=== PATIENT | male | born 1930 | race Hispanic/Latino ===

== ENCOUNTER 2016-07-31 06:29 | Inpatient (IN) | payer MEDICARE, OTHER ==
[2016-07-31] MEDS ORDERED: PROVENTIL IH ONE (06:38)
[2016-07-31] MEDS ORDERED: ATROVENT IH ONE (06:39)
--- NOTE | 2016-07-31 07:14 | Emergency Department Report ---
HPI - General Time Seen by Provider: 07/31/16 07:03 - HPI HPI: This is a 86-year-old male who presents to the emergency department via EMS from home after family called due to patient appearing to have shortness of breath. When EMS got there the patient's oxygen saturation on room air was 86% and an albuterol treatment was given. Upon arrival to the emergency department his pulse ox was up to 97% on room air. Patient is a poor historian secondary to dementia and is currently slightly combative. He has a history of COPD but it is unknown at this time whether or not he is on home oxygen. He also has a history of diabetes and hypertension. ED Past Medical Hx - Past Medical History Hx Hypertension: Yes Hx Diabetes: Yes Hx COPD: Yes Hx Dementia: Yes Additional medical history: Dementia - Surgical History Past Surgical History?: No - Social History Smoking Status: Current Every Day Smoker Substance Use Type: None - Medications Home Medications: Home Medications Medication Instructions Recorded Confirmed Last Taken Type Unobtainable 04/12/16 04/12/16 Unknown History ED Review of Systems ROS: Stated complaint: JOSE FRANCISCO Other details as noted in HPI Comment: Unobtainable due to pts medical conditions Physical Exam - Physical Exam Vital Signs: Vital Signs 07/31/16 07/31/16 06:45 06:46 Temperature 98 F Pulse Rate 77 Pulse Rate [ 68 Bilateral] Respiratory 20 Rate Respiratory 18 Rate [Bilateral ] Blood Pressure 156/89 Blood Pressure 156/89 [Left] O2 Sat by Pulse 97 Oximetry Physical Exam: GENERAL: The patient is well-developed well-nourished. Elderly-appearing and confused. HEENT: Normocephalic. Atraumatic. Extraocular motions are intact. Patient has moist mucous membranes. Pupils equal reactive to light bilaterally. NECK: Supple. Trachea is midline. CHEST/LUNGS: Coarse breath sounds throughout the chest. There is some tachypnea but no accessory muscle use. There is no respiratory distress noted. HEART/CARDIOVASCULAR: Irregularly irregular. Controlled rate. ABDOMEN: Abdomen is soft, nontender. Patient has normal bowel sounds. There is no abdominal distention. SKIN: There is no rash. There is no edema. There is no diaphoresis. NEURO: Patient is awake but confused. Mostly nonverbal. Does not follow any commands. Withdraws from painful stimuli. MUSCULOSKELETAL: There is no tenderness or deformity. There is no limitation range of motion. There is no evidence of acute injury. Cap refill less than 2 seconds. Radial pulses +2 over 4 bilaterally. ED Course Vital Signs 07/31/16 07/31/16 06:45 06:46 Temperature 98 F Pulse Rate 77 Pulse Rate [ 68 Bilateral] Respiratory 20 Rate Respiratory 18 Rate [Bilateral ] Blood Pressure 156/89 Blood Pressure 156/89 [Left] O2 Sat by Pulse 97 Oximetry ED Medical Decision Making - Lab Data Result diagrams: 07/31/16 07:16 07/31/16 07:16 - EKG Data -: EKG Interpreted by Me - EKG Data When compared to previous EKG there are: changes noted (current EKG now shows what appears to be atrial fibrillation) Interpretation: other (atrial fibrillation, rate of 83 bpm, normal axis, right bundle-branch block, occasional premature conducted complexes) - Radiology Data Radiology results: report reviewed, image reviewed interpreted by me: Chest x-ray shows some mild cardiomegaly and pulmonary vascular congestion with bilateral pleural effusions, right greater than left. No obvious pneumonia. No pneumothorax. CT of the head without contrast was not yet read by radiology but I took a look at it and I do not see any obvious intracranial bleed, shift or acute process. There is severe atrophy seen. CT angiography of the chest does not show any pulmonary embolism or aortic dissection. There is a large right pleural effusion. - Medical Decision Making 86-year-old male presents with complaint of shortness of breath. There is some questionable history of dementia but he is certainly confused if not documented here and is mostly nonverbal and does not follow commands. Patient's lungs sound very coarse with bronchospasm as well. Chest x-ray shows vascular congestion and some pleural effusions. Patient's labs show a slightly elevated first troponin at 0.045. Patient is in atrial fibrillation but with controlled rate. The d-dimer was very elevated at greater than [address] of the chest was done angiography and it did not show any pulmonary embolism or dissection but does show some pleural effusions. Patient given some Lasix, steroids, breathing treatments. Due to the patient's age and altered mental status, no blood thinners were used for the atrial fibrillation at this time. A CT of the head was ordered and has not been read by radiology but I do not see any obvious bleed, shift or acute process. There is severe atrophy. Patient will be admitted to hospital for his shortness of breath, CHF and has been accepted for admission by the hospitalist, Dr. Morales. - Differential Diagnosis CHF, PE, IN, pneumonia, COPD Critical Care Time: No Critical care attestation.: If time is entered above; I have spent that time in minutes in the direct care of this critically ill patient, excluding procedure time. ED Disposition Clinical Impression: Elevated troponin CHF (congestive heart failure) Qualifiers: Congestive heart failure type: unspecified congestive heart failure type Congestive heart failure chronicity: acute on chronic Qualified Code(s): I50.9 - Heart failure, unspecified Hypertension Qualifiers: Hypertension type: essential hypertension Qualified Code(s): I10 - Essential ( primary) hypertension Dyspnea Qualifiers: Dyspnea type: shortness of breath Qualified Code(s): R06.02 - Shortness of breath Dementia Qualifiers: Dementia type: unspecified type Dementia behavioral disturbance: without behavioral disturbance Qualified Code(s): F03.90 - Unspecified dementia without behavioral disturbance Disposition: OP ADMITTED IP TO THIS HOSP Is pt being admited?: Yes Condition: Stable Time of Disposition: 10:26
[2016-07-31 07:42] LABS: Basophils % (Auto) 0.6 % (0.0-1.8); Hematocrit 38.1 % (35.5-45.6); Hemoglobin 12.3 gm/dl (11.8-15.2); Mean Corpuscular HGB Conc 32 % (32-34); Mean Corpuscular Hemoglobin 27 pg (28-32); Mean Corpuscular Volume 82 fl (84-94); Platelet Count 283 K/mm3 (140-440); Red Blood Count 4.63 M/mm3 (3.65-5.03); Red Cell Distribution Width 16.7 % (13.2-15.2); White Blood Count 7.8 K/mm3 (4.5-11.0)
[2016-07-31 07:52] LABS: INR 1.24 (0.87-1.13)
[2016-07-31 07:53] LABS: Partial Thromboplastin Time 32.6 Sec. (24.2-36.6)
[2016-07-31 07:56] LABS: BUN/Creatinine Ratio 18.57; Blood Urea Nitrogen 13 mg/dL (9-20); Calcium 9.2 mg/dL (8.4-10.2); Carbon Dioxide 27 mmol/L (22-30); Chloride 105.6 mmol/L (98-107); Creatine Kinase MB 6.9 ng/mL (0.0-4.0); Glucose 102 mg/dL (75-100); Potassium 3.4 mmol/L (3.6-5.0); Sodium 147 mmol/L (137-145)
[2016-07-31 07:58] LABS: Anion Gap 18 mmol/L
[2016-07-31 07:59] LABS: Albumin/Globulin Ratio 0.8 %; Bilirubin,Direct 0.6 mg/dL (0-0.2); Bilirubin,Indirect 1.2 mg/dL; Bilirubin,Total 1.8 mg/dL (0.1-1.2)
[2016-07-31 08:10] LABS: Bacteria,Urine 2+ /HPF (Negative); Bilirubin,Urine NEG (Negative); Blood,Urine SM (Negative); Ketones,Urine TR mg/dL (Negative); Leukocyte Esterase,Urine SM (Negative); Mucus,Urine 3+ /HPF; Nitrite,Urine NEG (Negative)
[2016-07-31] MEDS ORDERED: LASIX IV ONE (08:12)
[2016-07-31] MEDS ORDERED: BABY ASPIRIN PO ONE (08:17)
[2016-07-31] MEDS ORDERED: ROCEPHIN/NS 1 GM/50 ML 1 GM/50 ML BAG IV ONE (08:17)
[2016-07-31] MEDS ORDERED: NACL ONE (08:42)
[2016-07-31] MEDS ORDERED: ATIVAN ONE (08:56)
[2016-07-31] MEDS ORDERED: ATIVAN IV ONE (08:57)
--- NOTE | 2016-07-31 09:19 | XRay Report ---
Single view chest: Compared to 04/12/16. History: Difficulty breathing. Findings: Borderline cardiomegaly. Trachea is midline. Pulmonary vascular congestion bilaterally with suspicion of right pleural effusion. Bilateral faint interstitial thickening. Impression: Probable CHF.
--- NOTE | 2016-07-31 09:35 | Cat Scan Report ---
CTA chest: History: Elevated d-dimer. Findings: No evidence of aortic aneurysm or pulmonary embolism. Atherosclerotic aorta. Large right pleural effusion with minimal left pleural effusion. No pericardial effusion. No mediastinal mass or adenopathy. Centrilobular emphysema bilaterally. Linear densities right and left perihilar area which airspace opacities suggestive of pneumonitis with discoid atelectasis. Impression: Bilateral pneumonitis with discoid atelectasis. No evidence of pulmonary embolism. Right large pleural effusion.
[2016-07-31] MEDS ORDERED: NOVOLOG SUB-Q ONE (10:32)
[2016-07-31] MEDS ORDERED: APRESOLINE ONE (11:57)
[2016-07-31] MEDS: APRESOLINE IV PRN (12:03)
[2016-07-31] MEDS: DUONEB 0.5 MG-3 MG/3 ML SOLN IH SCH ×2 (13:55→20:04)
[2016-07-31 14:38] LABS: Creatine Kinase MB 6.5 ng/mL (0.0-4.0)
--- NOTE | 2016-07-31 15:22 | Cat Scan Report ---
FINAL REPORT EXAM: CT HEAD/BRAIN WO CON HISTORY: Dementia, AMS TECHNIQUE: CT head without contrast PRIORS: None. FINDINGS: No acute intra-axial or extra-axial hemorrhage is identified. There is no evidence of midline shift or mass effect. The ventricles and sulci are within normal limits. [place]eralta-white matter differentiation is intact. No acute parenchymal abnormalities seen. There are patchy and confluent hypodensities within the supratentorial white matter. There is generalized parenchymal volume loss. Noted is mild mucosal thickening maxillary sinuses and ethmoid air cells. IMPRESSION: Chronic small vessel white matter ischemic change
--- NOTE | 2016-07-31 15:39 | History and Physical Report ---
History of Present Illness Date of examination: 07/31/16 Date of admission: 07/31/16 11:26 Chief complaint: Shortness of breath, Altered mental status History of present illness: Patient is an 86-year-old gentleman who has a history of dementia, diabetes and COPD, who also lives with family members at home, was brought to the emergency department with a chief complaint of shortness of breath and alteration in his mental status, being combative home. EMS was called to the patient's house by family members. On arrival to limit was found to be 86%. Patient was commenced on albuterol inhaler with oxygen. Was brought to the emergency department where pulse ox was found to be 97%. There was no history of fever or chest pain. No orthopnea or proximal nocturnal dyspnea. Chest x-ray at emergency department was suggestive of pulmonary vascular congestion with right pleural effusion. CT scan of the brain was unremarkable for any acute event. CT angiogram of the chest was negative for any pulmonary embolism. ProBNP was 7006. Admission was therefore requested Past History Past Medical History: COPD, diabetes, hypertension, other (dementia) Past Surgical History: Other (patient is altered in his mental status and therefore unable to give any history) Social history: lives with family, smoking. denies: alcohol abuse Family history: no significant family history Medications and Allergies Allergies Allergy/AdvReac Type Severity Reaction Status Date / Time strawberry [[place]] Allergy Hives Verified 08/19/14 14:13 Sulfa (Sulfonamide Allergy Unknown Verified 08/19/14 14:13 Antibiotics) Home Medications Medication Instructions Recorded Confirmed Last Taken Type Unobtainable 04/12/16 04/12/16 Unknown History Active Meds: Active Medications Albuterol/Ipratropium (Duoneb 0.5 Mg-3 Mg/3 Ml Soln) 1 ampul IH Q6HR MARIE Last Admin: 07/31/16 13:55 Dose: Not Given Hydralazine HCl (Apresoline) 10 mg IV Q6HR PRN PRN Reason: Hypertension Last Admin: 07/31/16 12:03 Dose: 10 mg Review of Systems ROS unobtainable: due to mental status (could not be obtained due to alteration in mental status) Exam - Constitutional Vitals: Temp Pulse Resp BP Pulse Ox 98 F 85 20 187/70 97 07/31/16 06:45 07/31/16 13:56 07/31/16 13:56 07/31/16 12:03 07/31/16 14:01 General appearance: Present: cachectic, disheveled, other (disoriented and combative) - EENT Eyes: Present: PERRL - Neck Neck: Present: supple, normal ROM - Respiratory Respiratory effort: normal Respiratory: bilateral: CTA, diminished - Cardiovascular Heart Sounds: Present: S1 & S2. Absent: rub, click - Extremities Extremities: pulses symmetrical, No edema Peripheral Pulses: within normal limits - Abdominal General gastrointestinal: Present: soft, non-tender, non-distended, normal bowel sounds - Integumentary Integumentary: Present: warm, dry - Musculoskeletal Musculoskeletal: gait normal, strength equal bilaterally - Psychiatric Psychiatric: appropriate mood/affect, intact judgment & insight - Neurologic Neurologic: CNII-XII intact, moves all extremities Results - Labs CBC & Chem 7: 07/31/16 07:16 07/31/16 07:16 Labs: Abnormal lab results 07/31/16 07/31/16 Range/Units 13:12 13:12 CK-MB (CK-2) 6.5 H (0.0-4.0) ng/mL CK-MB (CK-2) Rel Index 6.5 H (0-4) Troponin T 0.033 H (0.00-0.029) ng/mL Assessment and Plan 1. Acute heart failure: Diastolic and systolic functions of the left ventricle gets to be evaluated with echo: ProBNP was 7006. Chest x-ray shows evidence of congestion. We will commence patient on diuresis with limited Lasix, carvedilol 12.5 mg twice a day, lisinopril 10 mg. Strict input and outputs, daily weights, strict input and output charts, daily weights. 2. COPD exacerbation: Bronchodilators with DuoNeNoel garcia, 3. Acute respiratory failure hypercapnic. Continue with the daily dose. Gradual oxygen supplementation. Will obtain ABG in the morning. Pulmonology consult obtained. 4. Mild hypernatremia: Most likely secondary dehydration. Commence IV hydration. 5. Dehydration: Patient has loss of skin turgor. Sunken eyeballs. Commence IV hydration with D5 6. Metabolic encephalopathy: 7. History of diabetes mellitus. We will obtain A1c. Commence sliding scale insulin. 8. Nutritional. Patient is emaciated. Does not eat. Will obtain dietary consult. 9. Elevated cardiac enzymes. Significance as of this is not appreciated. We will obtain EKG. Commence patient on aspirin. Nitroglycerin paste. Cardiology consult. DVT prophylaxis Lovenox, GI reflux with Pepcid. Spent 35 minutes in direct patient care evaluation of medical records discussed with emergency room physicians as well as learning coordinator during this admission process
[2016-07-31] MEDS ORDERED: LEVAQUIN 500MG/100ML 500 MG/100 ML BAG IV NR (16:00)
[2016-07-31] MEDS: PROVENTIL IH SCH ×2 (17:15→20:05)
[2016-07-31] MEDS: ASPIRIN PO SCH (18:03)
[2016-07-31] MEDS: COREG PO SCH ×2 (18:03→21:25)
[2016-07-31] MEDS: PULMICORT IH SCH (20:05)
[2016-07-31] MEDS ORDERED: D50W (25GM) IV PRN (20:11)
[2016-07-31] MEDS: NOVOLOG SUB-Q SCH ×2 (21:25→23:53)
[2016-07-31] MEDS: D5W 1,000 ML IV SCH (21:25)
--- NOTE | 2016-08-01 00:45 | Admit Criteria Form ---
Admission Criteria Documentation: HEART FAILURE: COMMON COMPLICATIONS Clinical Indications for Inpatient Care (Place 'X' for any and all applicable criteria): Ongoing inpatient care may be indicated for heart failure with ANY ONE of the following (1)(2)(3)(4)(5): [ ]I. Ongoing need for care for primary condition requiring frequent therapy adjustments because of changes in cardiac function (eg, drug dosage changes for drugs that are renally metabolized) [ ]II. New-onset heart failure [ ]III. Heart failure with decreased urine output not responsive to attempts to optimize volume status [ ]IV. Acute cardiac ischemia causing or associated with failure [X ]V. Complications of heart failure, including ANY ONE of the following: [ ]a) Pericardial effusion [ ]b) Symptomatic pleural effusion [ ]c) O2 saturation <90% or PO2 < 60 mm Hg (8.0 kPa) on room air or require baseline supplemental O2 [ ]d) Tachypnea [ X]e) Dyspnea [ ]f) Syncope [ ]g) Change in mental status [ ]h) Acute renal insufficiency that is severe (reduction of more than 50% in estimated glomerular filtration rate from baseline) or progressive reduction of more than 25% in estimated glomerular filtration rate from baseline, with creatinine continuing to rise) [ ]i) Hemodynamic instability [ ]j) Anasarca [ ]k) Clinically significant metabolic abnormalities due to heart failure (eg, new-onset metabolic acidosis) Extended stay beyond goal length of stay for primary condition may be needed until ALL of the following are present(1)(3): [ ]a) Stable and effective diuretic regimen established (or patient on stable dialysis regimen if in chronic renal failure) [ ]b) Breathing comfortably at rest [ ]c) Saturation of arterial oxygen greater than 90% or at acceptable baseline [ ]d) Pulmonary edema absent or improved [ ]e) Hemodynamic stability [ ]f) Volume status acceptable on oral medication [ ]g) Peripheral or sacral edema absent or improved [ ]h) Renal function stable and manageable at a lower level of care [ ]i) Complications (eg, pleural effusion) resolved or manageable at a lower level of care [ ]j) Patient or caregiver has received written discharge instructions or educational material addressing activity level, diet, discharge medications, follow-up appointment, weight monitoring, and what to do if symptoms worsen The original [facility] content created by [employer] has been revised. The portions of the content which have been revised are identified through the use of italic text or in bold, and [facility] has neither reviewed nor approved the modified material.All other unmodified content is copyright [facility]. Please see references footnoted in the original [facility] edition 2016 Admission Criteria Met: Yes
[2016-08-01] MEDS: DUONEB 0.5 MG-3 MG/3 ML SOLN IH SCH ×5 (01:32→19:16)
[2016-08-01] MEDS ORDERED: PROVENTIL IH PRN (01:34)
[2016-08-01] MEDS: PROVENTIL IH SCH (01:35)
[2016-08-01] MEDS: NITRO DUR TD SCH (05:54)
[2016-08-01] MEDS: NOVOLOG SUB-Q SCH ×3 (05:54→18:00)
[2016-08-01 07:13] LABS: Basophils % (Auto) 0.1 % (0.0-1.8); Hematocrit 36.6 % (35.5-45.6); Hemoglobin 11.6 gm/dl (11.8-15.2); Mean Corpuscular HGB Conc 32 % (32-34); Mean Corpuscular Hemoglobin 26 pg (28-32); Mean Corpuscular Volume 82 fl (84-94); Platelet Count 295 K/mm3 (140-440); Red Blood Count 4.47 M/mm3 (3.65-5.03); White Blood Count 7.1 K/mm3 (4.5-11.0)
[2016-08-01] MEDS: PULMICORT IH SCH ×2 (07:27→19:16)
[2016-08-01 07:50] LABS: Alanine Aminotransferase 9 units/L (7-56); Albumin 2.7 g/dL (3.9-5); Albumin/Globulin Ratio 0.7 %; Alkaline Phosphatase 92 units/L (35-129); Anion Gap 20 mmol/L; BUN/Creatinine Ratio 25.55; Bilirubin,Total 0.9 mg/dL (0.1-1.2); Blood Urea Nitrogen 23 mg/dL (9-20); Calcium 8.9 mg/dL (8.4-10.2); Carbon Dioxide 25 mmol/L (22-30); Chloride 105.7 mmol/L (98-107); Glucose 127 mg/dL (75-100); Magnesium 2.2 mg/dL (1.7-2.3); Potassium 3.5 mmol/L (3.6-5.0); Sodium 147 mmol/L (137-145); Total Protein 6.6 g/dL (6.3-8.2)
[2016-08-01] MEDS ORDERED: LASIX IV SCH (10:00)
--- NOTE | 2016-08-01 11:18 | Progress Note ---
Assessment and Plan Assessment and plan: 1. Acute systolic heart failure CXR and CTA chest showing vascular congestion and right pleural effusion; BNP elevated Echocardiogram pending Started on beta raji, ELI inhibitor and diuresis with IV Lasix 2. Chronic atrial fibrillation Rate controlled on beta raji Not a candidate for anticoagulation 2. Elevated troponin Slight elevation of troponin, but trending down Most likely nonspecific in the setting of acute heart failure 3. COPD Without exacerbation CT chest showing emphysema Pulmonary consulted and discontinued corticosteroids there is no acute exacerbation; added inhaled bronchodilators (Brovana and Pulmicort) 4. Acute respiratory failure Most likely secondary to heart failure with fluid overload superimposed on COPD Continue to diurese 5. Acute metabolic encephalopathy Likely due to combination of hypoxia/electolytes abnormalities/infection superimposed on baseline dementia 6. Electrolytes abnormalities Mild hypernatremia and hypokalemia Monitor closely especially that he is on Lasix 7. UTI UA suggestive of UTI Urine culture pending Started on Rocephin 8. DM Accu-Cheks and SSI 9. Malnutrition Will consult dietitian 10. Dementia Supportive care 11. DVT prophylaxis Lovenox; if will develop renal impairment due to ELI inhibitor/Lasix, will switch to heparin subcutaneous 12. Patient was on home hospice History Interval history: unable to answer any questions, confused, lethargic Hospitalist Physical - Constitutional Vitals: Temp Pulse Resp BP Pulse Ox 98.2 F 62 20 137/64 97 08/01/16 05:19 08/01/16 07:37 08/01/16 07:37 08/01/16 05:19 08/01/16 07:27 General appearance: Present: mild distress, disheveled - EENT Eyes: Present: PERRL, EOM intact - Neck Neck: Present: supple. Absent: enlarged thyroid, masses or JVD - Respiratory Respiratory effort: normal Respiratory: bilateral: diminished, negative: rhonchi, wheezing - Cardiovascular Rhythm: irregularly irregular Heart Sounds: Present: S1 & S2. Absent: systolic murmur - Extremities Extremities: no ischemia - Abdominal General gastrointestinal: soft, non-tender, non-distended, normal bowel sounds - Integumentary Integumentary: Present: warm, dry. Absent: jaundice, rash - Neurologic Neurologic: moves all extremities Results - Labs CBC & Chem 7: 08/01/16 06:10 08/01/16 06:10 Labs: Laboratory Last Values WBC 7.1 K/mm3 (4.5-11.0) 08/01/16 06:10 RBC 4.47 M/mm3 (3.65-5.03) 08/01/16 06:10 Hgb 11.6 gm/dl (11.8-15.2) L 08/01/16 06:10 Hct 36.6 % (35.5-45.6) 08/01/16 06:10 MCV 82 fl (84-94) L 08/01/16 06:10 MCH 26 pg (28-32) L 08/01/16 06:10 MCHC 32 % (32-34) 08/01/16 06:10 RDW 17.0 % (13.2-15.2) H 08/01/16 06:10 Plt Count 295 K/mm3 (140-440) 08/01/16 06:10 Lymph % (Auto) 10.7 % (13.4-35.0) L 08/01/16 06:10 [place] % (Auto) 9.4 % (0.0-7.3) H 08/01/16 06:10 Eos % (Auto) 0.0 % (0.0-4.3) 08/01/16 06:10 Baso % (Auto) 0.1 % (0.0-1.8) 08/01/16 06:10 Lymph # 0.8 K/mm3 (1.2-5.4) L 08/01/16 06:10 [place] # 0.7 K/mm3 (0.0-0.8) 08/01/16 06:10 Eos # 0.0 K/mm3 (0.0-0.4) 08/01/16 06:10 Baso # 0.0 K/mm3 (0.0-0.1) 08/01/16 06:10 Seg Neutrophils % 79.8 % (40.0-70.0) H 08/01/16 06:10 Seg Neutrophils # 5.7 K/mm3 (1.8-7.7) 08/01/16 06:10 PT 15.5 Sec. (12.2-14.9) H 07/31/16 07:16 INR 1.24 (0.87-1.13) H 07/31/16 07:16 APTT 32.6 Sec. (24.2-36.6) 07/31/16 07:16 D-Dimer 1374.31 ng/mlDDU (0-234) H 07/31/16 07:16 Sodium 147 mmol/L (137-145) H 08/01/16 06:10 Potassium 3.5 mmol/L (3.6-5.0) L 08/01/16 06:10 Chloride 105.7 mmol/L (98-107) 08/01/16 06:10 Carbon Dioxide 25 mmol/L (22-30) 08/01/16 06:10 Anion Gap 20 mmol/L 08/01/16 06:10 BUN 23 mg/dL (9-20) H 08/01/16 06:10 Creatinine 0.9 mg/dL (0.8-1.5) 08/01/16 06:10 Estimated GFR > 60 ml/min 08/01/16 06:10 BUN/Creatinine Ratio 25.55 % 08/01/16 06:10 Glucose 127 mg/dL (75-100) H 08/01/16 06:10 POC Glucose 131 (70-105) H 07/31/16 21:21 Hemoglobin A1c 6.3 % (4-6) H 08/01/16 00:59 Calcium 8.9 mg/dL (8.4-10.2) 08/01/16 06:10 Magnesium 2.2 mg/dL (1.7-2.3) 08/01/16 06:10 Total Bilirubin 0.9 mg/dL (0.1-1.2) 08/01/16 06:10 Direct Bilirubin 0.6 mg/dL (0-0.2) H 07/31/16 07:16 Indirect Bilirubin 1.2 mg/dL 07/31/16 07:16 AST 15 units/L (5-40) 08/01/16 06:10 ALT 9 units/L (7-56) 08/01/16 06:10 Alkaline Phosphatase 92 units/L (35-129) 08/01/16 06:10 Total Creatine Kinase 100 units/L (55-170) 07/31/16 13:12 CK-MB (CK-2) 6.5 ng/mL (0.0-4.0) H 07/31/16 13:12 CK-MB (CK-2) Rel Index 6.5 (0-4) H 07/31/16 13:12 Troponin T 0.033 ng/mL (0.00-0.029) H 07/31/16 13:12 NT-Pro-B Natriuret Pep 7006 pg/mL (0-900) H 07/31/16 07:16 Total Protein 6.6 g/dL (6.3-8.2) 08/01/16 06:10 Albumin 2.7 g/dL (3.9-5) L 08/01/16 06:10 Albumin/Globulin Ratio 0.7 % 08/01/16 06:10 Triglycerides 78 mg/dL (2-149) 07/31/16 07:16 Cholesterol 138 mg/dL (50-199) 07/31/16 07:16 LDL Cholesterol Direct 75 mg/dL (50-130) 07/31/16 07:16 HDL Cholesterol 48 mg/dL (40-59) 07/31/16 07:16 Cholesterol/HDL Ratio 2.87 % 07/31/16 07:16 Urine Color [place] (Yellow) 07/31/16 07:30 Urine Turbidity Cloudy (Clear) 07/31/16 07:30 Urine pH 5.0 (5.0-7.0) 07/31/16 07:30 Ur Specific [place] 1.020 (1.003-1.030) 07/31/16 07:30 Urine Protein 100 mg/dl mg/dL (Negative) 07/31/16 07:30 Urine Glucose (UA) Neg mg/dL (Negative) 07/31/16 07:30 Urine Ketones Tr mg/dL (Negative) 07/31/16 07:30 Urine Blood Sm (Negative) 07/31/16 07:30 Urine Nitrite Neg (Negative) 07/31/16 07:30 Urine Bilirubin Neg (Negative) 07/31/16 07:30 Urine Urobilinogen 4.0 mg/dL (<2.0) 07/31/16 07:30 Ur Leukocyte Esterase Sm (Negative) 07/31/16 07:30 Urine WBC (Auto) 96.0 /HPF (0.0-6.0) H 07/31/16 07:30 Urine RBC (Auto) 4.0 /HPF (0.0-6.0) 07/31/16 07:30 U Epithel Cells (Auto) < 1.0 /HPF (0-13.0) 07/31/16 07:30 Urine Bacteria (Auto) 2+ /HPF (Negative) 07/31/16 07:30 Urine Mucus 3+ /HPF 07/31/16 07:30 Urine Creatinine 63.0 mg/dL (0.1-20.0) H 08/01/16 02:00 Urine Microalbumin 29.5 mg/dL (0.1-34.0) 08/01/16 02:00 Microalb/Creat Ratio 468.2 ug/mg 08/01/16 02:00 - Imaging and Cardiology Chest x-ray: image reviewed (pulmonary congestion) CT scan - chest: report reviewed (no PE, vascular congestion) CT Scan - head: report reviewed (no acute abnormality)
[2016-08-01] MEDS: COREG PO SCH ×2 (11:37→21:51)
--- NOTE | 2016-08-01 11:38 | Consultation ---
History of Present Illness Consult date: 08/01/16 Requesting physician: JANICE BARRAZA Reason for consult: pleural effusion History of present illness: 86 y/o male admitted to the hospital with acute respiratory failure. Hypoxic on arrival. CTA done to rule out PE, which was negative but did show a right sided pleural effusion. Pulmonary consulted for this. Of note BNP was greater than 7k. 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 Patient is not able to provide any history at all Past History Past Medical History: COPD, diabetes, hypertension, other (dementia) Past Surgical History: Other (patient is altered in his mental status and therefore unable to give any history) Social history: lives with family, smoking. denies: alcohol abuse Family history: no significant family history Medications and Allergies Allergies Allergy/AdvReac Type Severity Reaction Status Date / Time strawberry [[place]] Allergy Hives Verified 08/19/14 14:13 Sulfa (Sulfonamide Allergy Unknown Verified 08/19/14 14:13 Antibiotics) Home Medications Medication Instructions Recorded Confirmed Last Taken Type Unobtainable 04/12/16 04/12/16 Unknown History Active Meds: Active Medications Albuterol (Proventil) 2.5 mg IH Q4HRT PRN PRN Reason: Shortness Of Breath Albuterol/Ipratropium (Duoneb 0.5 Mg-3 Mg/3 Ml Soln) 1 ampul IH Q6HRT [facility] Last Admin: 08/01/16 07:27 Dose: 1 ampul Aspirin (Aspirin) 325 mg PO QDAY [facility] Last Admin: 07/31/16 18:03 Dose: 325 mg Budesonide (Pulmicort) 0.25 mg IH Q12HRT [facility] Last Admin: 08/01/16 07:27 Dose: 0.25 mg Carvedilol (Coreg) 25 mg PO BID [facility] Last Admin: 07/31/16 21:25 Dose: 25 mg Dextrose (D50w (25gm)) 50 ml IV PRN PRN PRN Reason: Hypoglycemia Enoxaparin Sodium (Lovenox) 40 mg SUB-Q QDAY MARIE Furosemide (Lasix) 20 mg IV QDAY MARIE Hydralazine HCl (Apresoline) 10 mg IV Q6HR PRN PRN Reason: Hypertension Last Admin: 07/31/16 12:03 Dose: 10 mg Dextrose (D5w) 1,000 mls @ 75 mls/hr IV DIRECT [facility] Last Admin: 07/31/16 21:25 Dose: 75 mls/hr Insulin Aspart (Novolog) 0 units SUB-Q Q6HR [facility] PRN Reason: Protocol Last Admin: 08/01/16 05:54 Dose: Not Given Lisinopril (Zestril) 40 mg PO QDAY [facility] Methylprednisolone Sodium Succinate (Solu-Medrol) 20 mg IV Q12HR [facility] Last Admin: 07/31/16 21:25 Dose: 20 mg Nitroglycerin (Nitro Dur) 0.1 mg TD QDAY@0600 [facility] Last Admin: 08/01/16 05:54 Dose: 0.1 mg Pneumococcal Polyvalent Vaccine (Pneumovax 23) 0.5 ml IM .ONCE ONE Stop: 08/01/16 12:01 Review of Systems All systems: negative Physical Examination Vital signs: Vital Signs Temp Pulse Resp BP Pulse Ox 98 F 77 20 156/89 97 07/31/16 06:45 07/31/16 06:45 07/31/16 06:45 07/31/16 06:45 07/31/16 06:45 General appearance: no acute distress Eyes: non-icteric ENT: oropharynx moist Neck: supple Ascultation: Right: diminished breath sounds (right bases with some rales), Bilateral: clear (anteriorly, there is no wheeze) Percussion: Right: dull (right base) Cardiovascular: regular rate and rhythm Gastrointestinal: normoactive bowel sounds Extremities: no cyanosis, no edema, pink and warm unable to assess Results - Laboratory Findings CBC and BMP: 08/01/16 06:10 08/01/16 06:10 PT/INR, D-dimer PT 15.5 Sec. (12.2-14.9) H 07/31/16 07:16 INR 1.24 (0.87-1.13) H 07/31/16 07:16 D-Dimer 1374.31 ng/mlDDU (0-234) H 07/31/16 07:16 Abnormal lab findings: Abnormal Labs 07/31/16 07/31/16 07/31/16 13:12 13:12 16:01 Hgb MCV MCH RDW Lymph % (Auto) [place] % (Auto) Lymph # Seg Neutrophils % Sodium Potassium BUN Glucose POC Glucose 128 H Hemoglobin A1c CK-MB (CK-2) 6.5 H CK-MB (CK-2) Rel Index 6.5 H Troponin T 0.033 H Albumin Urine Creatinine 07/31/16 08/01/16 08/01/16 21:21 00:59 02:00 Hgb MCV MCH RDW Lymph % (Auto) [place] % (Auto) Lymph # Seg Neutrophils % Sodium Potassium BUN Glucose POC Glucose 131 H Hemoglobin A1c 6.3 H CK-MB (CK-2) CK-MB (CK-2) Rel Index Troponin T Albumin Urine Creatinine 63.0 H 08/01/16 08/01/16 06:10 06:10 Hgb 11.6 L MCV 82 L MCH 26 L RDW 17.0 H Lymph % (Auto) 10.7 L [place] % (Auto) 9.4 H Lymph # 0.8 L Seg Neutrophils % 79.8 H Sodium 147 H Potassium 3.5 L BUN 23 H Glucose 127 H POC Glucose Hemoglobin A1c CK-MB (CK-2) CK-MB (CK-2) Rel Index Troponin T Albumin 2.7 L Urine Creatinine - Diagnostic Findings Chest x-ray: image reviewed (As stated in HPI) Assessment and Plan 86 y/o male with elevated BNP and large right sided pleural effusion, presenting with acute hypoxemic respiratory failure. 1. Suggest IV diuresis with lasix therapy, patient was hypertensive on arrival. Feel he could benefit/tolerate BID dosing 2. No current wheeze heard on exam, would stop steroids. 3. Will add BID pulmicort and brovana therapy 4. Suggest echo to evaluate EF and filling pressures
[2016-08-01] MEDS ORDERED: PNEUMOVAX 23 IM ONE (12:00)
--- NOTE | 2016-08-01 13:16 | Consultation ---
History of Present Illness Consult date: 08/01/16 Requesting physician: CHARLI CONTE Consult reason: hypertension History of present illness: 86-year-old gentleman with past history of dementia, COPD, diabetes, hypertension, chronic atrial fibrillation presented to [facility] emergency department for increasing shortness of breath. The paramedics were called to the home because the patient was apparently having significant shortness of breath and the paramedics arrived they stated that the patient was sats were 86%. The patient arrived to the emergency department his pulse ox was 97%. Upon arriving in the emergency department chest x-ray was consistent with a right pleural effusion and pulmonary vascular congestion. He subsequently had a CTA of the chest for an elevated d-dimer which revealed bilateral pneumonitis with negative for pulmonary embolus and a large right pleural effusion. Head CT just revealed periventricular white matter disease. Blood cultures so far today patient had a urine culture that is likely a contaminant. Of note the patient was hospitalized in May 2016 and was discharged home on home hospice. Past History Past Medical History: COPD, diabetes, hypertension, other (dementia) Past Surgical History: Other (patient is altered in his mental status and therefore unable to give any history) Social history: lives with family, smoking. denies: alcohol abuse Family history: no significant family history Medications and Allergies Allergies Allergy/AdvReac Type Severity Reaction Status Date / Time strawberry [[place]] Allergy Hives Verified 08/19/14 14:13 Sulfa (Sulfonamide Allergy Unknown Verified 08/19/14 14:13 Antibiotics) Home Medications Medication Instructions Recorded Confirmed Last Taken Type Unobtainable 04/12/16 04/12/16 Unknown History Active Meds: Active Medications Albuterol (Proventil) 2.5 mg IH Q4HRT PRN PRN Reason: Shortness Of Breath Albuterol/Ipratropium (Duoneb 0.5 Mg-3 Mg/3 Ml Soln) 1 ampul IH Q6HRT [facility] Last Admin: 08/01/16 13:06 Dose: 1 ampul Arformoterol Tartrate (Brovana Nebu) 15 mcg IH Q12HRT [facility] Aspirin (Aspirin) 325 mg PO QDAY [facility] Last Admin: 07/31/16 18:03 Dose: 325 mg Budesonide (Pulmicort) 0.25 mg IH Q12HRT [facility] Last Admin: 08/01/16 07:27 Dose: 0.25 mg Carvedilol (Coreg) 25 mg PO BID [facility] Last Admin: 08/01/16 11:37 Dose: Not Given Dextrose (D50w (25gm)) 50 ml IV PRN PRN PRN Reason: Hypoglycemia Enoxaparin Sodium (Lovenox) 40 mg SUB-Q QDAY MARIE Furosemide (Lasix) 20 mg IV QDAY [facility] Hydralazine HCl (Apresoline) 10 mg IV Q6HR PRN PRN Reason: Hypertension Last Admin: 07/31/16 12:03 Dose: 10 mg Dextrose (D5w) 1,000 mls @ 75 mls/hr IV DIRECT [facility] Last Admin: 07/31/16 21:25 Dose: 75 mls/hr Insulin Aspart (Novolog) 0 units SUB-Q Q6HR [facility] PRN Reason: Protocol Last Admin: 08/01/16 05:54 Dose: Not Given Lisinopril (Zestril) 40 mg PO QDAY [facility] Methylprednisolone Sodium Succinate (Solu-Medrol) 20 mg IV Q12HR [facility] Last Admin: 07/31/16 21:25 Dose: 20 mg Nitroglycerin (Nitro Dur) 0.1 mg TD QDAY@0600 [facility] Last Admin: 08/01/16 05:54 Dose: 0.1 mg Review of Systems ROS unobtainable: due to mental status (unable to obtain review of systems) Physical Examination Vital Signs Temp Pulse Resp BP Pulse Ox 98 F 77 20 156/89 97 07/31/16 06:45 07/31/16 06:45 07/31/16 06:45 07/31/16 06:45 07/31/16 06:45 General appearance: no acute distress HEENT: Positive: PERRL Neck: Positive: neck supple, trachea midline Cardiac: Positive: Irregularly Regular Lungs: Positive: Decreased Breath Sounds Neuro: Positive: Other (the patient's with his eyes to verbal stimuli however he does not respond to any commands. He does track with his eyes.) Abdomen: Positive: Unremarkable, Soft, Active Bowel Sounds Male genitourinary: Positive: deferred Skin: Negative: Rash, Suspicious Lesions Extremities: Present: normal, warm Results 08/01/16 06:10 08/01/16 06:10 Cardiac Enzymes 07/31/16 08/01/16 Range/Units 13:12 06:10 AST 15 (5-40) units/L CK-MB (CK-2) 6.5 H (0.0-4.0) ng/mL CBC 08/01/16 Range/Units 06:10 WBC 7.1 (4.5-11.0) K/mm3 RBC 4.47 (3.65-5.03) M/mm3 Hgb 11.6 L (11.8-15.2) gm/dl Hct 36.6 (35.5-45.6) % Plt Count 295 (140-440) K/mm3 Lymph # 0.8 L (1.2-5.4) K/mm3 [place] # 0.7 (0.0-0.8) K/mm3 Eos # 0.0 (0.0-0.4) K/mm3 Baso # 0.0 (0.0-0.1) K/mm3 Comprehensive Metabolic Panel 08/01/16 Range/Units 06:10 Sodium 147 H (137-145) mmol/L Potassium 3.5 L (3.6-5.0) mmol/L Chloride 105.7 (98-107) mmol/L Carbon Dioxide 25 (22-30) mmol/L BUN 23 H (9-20) mg/dL Creatinine 0.9 (0.8-1.5) mg/dL Glucose 127 H (75-100) mg/dL Calcium 8.9 (8.4-10.2) mg/dL AST 15 (5-40) units/L ALT 9 (7-56) units/L Alkaline Phosphatase 92 (35-129) units/L Total Protein 6.6 (6.3-8.2) g/dL Albumin 2.7 L (3.9-5) g/dL - Imaging and Cardiology Echo: pending EKG: report reviewed (atrial fibrillation with a controlled ventricular rate) Assessment and Plan 86 Male shortness of breath/hypercapneic respiratory failure/large right pleural effusion appreciated pulmonary recommendations CHF Echocardiogram pending Continue aspirin, Coreg, and IV Lasix Recommend strict I's and O's Chronic atrial fibrillation Currently rate controlled Patient has some minor pauses however no indication for permanent pacemaker In the past the patient was deemed not a candidate for anticoagulation
[2016-08-01] MEDS: ASPIRIN PO SCH (15:08)
[2016-08-01] MEDS: ZESTRIL PO SCH (15:09)
[2016-08-01] MEDS: LOVENOX SUB-Q SCH (16:19)
[2016-08-01] MEDS: BROVANA NEBU IH SCH (19:16)
[2016-08-01] MEDS: LASIX IV SCH (21:52)
[2016-08-02] MEDS: DUONEB 0.5 MG-3 MG/3 ML SOLN IH SCH ×5 (02:37→20:05)
[2016-08-02] MEDS: NOVOLOG SUB-Q SCH ×4 (05:08→20:36)
[2016-08-02] MEDS: NITRO DUR TD SCH ×2 (05:10→06:28)
[2016-08-02 05:49] LABS: Basophils % (Auto) 0.1 % (0.0-1.8); Hematocrit 37.3 % (35.5-45.6); Hemoglobin 11.9 gm/dl (11.8-15.2); Mean Corpuscular HGB Conc 32 % (32-34); Mean Corpuscular Volume 81 fl (84-94); Platelet Count 293 K/mm3 (140-440); Red Blood Count 4.59 M/mm3 (3.65-5.03); Red Cell Distribution Width 17.2 % (13.2-15.2); White Blood Count 5.1 K/mm3 (4.5-11.0)
[2016-08-02 05:50] LABS: Mean Corpuscular Hemoglobin 26 pg (28-32)
[2016-08-02 05:59] LABS: Alanine Aminotransferase 11 units/L (7-56); Albumin/Globulin Ratio 0.8 %; Alkaline Phosphatase 97 units/L (35-129); BUN/Creatinine Ratio 32.22; Bilirubin,Total 0.9 mg/dL (0.1-1.2); Blood Urea Nitrogen 29 mg/dL (9-20); Calcium 8.8 mg/dL (8.4-10.2); Carbon Dioxide 28 mmol/L (22-30); Glucose 152 mg/dL (75-100); Potassium 3.7 mmol/L (3.6-5.0); Sodium 140 mmol/L (137-145); Total Protein 6.7 g/dL (6.3-8.2)
[2016-08-02 06:42] LABS: Anion Gap 18 mmol/L
[2016-08-02] MEDS: BROVANA NEBU IH SCH ×2 (08:30→20:04)
[2016-08-02] MEDS: PULMICORT IH SCH ×3 (08:34→20:07)
--- NOTE | 2016-08-02 10:41 | Progress Note ---
Assessment and Plan Acute respiratory failure/large right pleural effusion management per pulmonary Acute heart failure await echo findings continue IV lasix, coreg strict I's and O's Chronic atrial fibrillation-->currently rate controlled Patient has some minor pauses however no indication for permanent pacemaker per Dr. Faye (EP) In the past the patient was deemed not a candidate for anticoagulation continue coreg 25mg BID COPD Diabetes Dementia The patient has been seen in conjunction with Dr. Kumari who agrees with the assessment and plan of care. Subjective Date of service: 08/02/16 Principal diagnosis: shortness of breath Interval history: The patient is resting in bed. Pt. has dementia. No acute distress noted. Atrial fibrillation with controlled ventricular rate on the monitor. Objective Last Vital Signs Temp 97.4 F L 08/02/16 10:00 Pulse 71 08/02/16 10:27 Resp 16 08/02/16 10:27 BP 119/53 08/02/16 10:00 Pulse Ox 93 08/02/16 10:29 - Physical Examination General: No Apparent Distress HEENT: Positive: PERRL Neck: Positive: neck supple, trachea midline Cardiac: Positive: irregularly irregular, S1/S2 Lungs: Positive: Decreased Breath Sounds Neuro: Positive: Other (Pt. awake, follows simple commands, hx. of dementia) Abdomen: Positive: Unremarkable, Soft, Active Bowel Sounds Skin: Negative: Rash, Suspicious Lesions Extremities: Present: normal, warm. Absent: edema - Labs and Meds Cardiac Enzymes 08/02/16 Range/Units 04:50 AST 23 (5-40) units/L CBC 08/02/16 Range/Units 04:50 WBC 5.1 (4.5-11.0) K/mm3 RBC 4.59 (3.65-5.03) M/mm3 Hgb 11.9 (11.8-15.2) gm/dl Hct 37.3 (35.5-45.6) % Plt Count 293 (140-440) K/mm3 Lymph # 0.6 L (1.2-5.4) K/mm3 [place] # 0.2 (0.0-0.8) K/mm3 Eos # 0.0 (0.0-0.4) K/mm3 Baso # 0.0 (0.0-0.1) K/mm3 Comprehensive Metabolic Panel 08/02/16 Range/Units 04:50 Sodium 140 (137-145) mmol/L Potassium 3.7 (3.6-5.0) mmol/L Chloride 98.0 (98-107) mmol/L Carbon Dioxide 28 (22-30) mmol/L BUN 29 H (9-20) mg/dL Creatinine 0.9 (0.8-1.5) mg/dL Glucose 152 H (75-100) mg/dL Calcium 8.8 (8.4-10.2) mg/dL AST 23 (5-40) units/L ALT 11 (7-56) units/L Alkaline Phosphatase 97 (35-129) units/L Total Protein 6.7 (6.3-8.2) g/dL Albumin 3.0 L (3.9-5) g/dL - Imaging and Cardiology EKG: report reviewed (atrial fibrillation with a controlled ventricular rate) Echo: pending - Telemetry EKG Rhythm: Atrial Fibrillation
[2016-08-02] MEDS: COREG PO SCH (11:26)
[2016-08-02] MEDS: LOVENOX SUB-Q SCH (11:30)
[2016-08-02] MEDS: ASPIRIN PO SCH (11:30)
[2016-08-02] MEDS: ZESTRIL PO SCH (11:30)
[2016-08-02] MEDS: LASIX IV SCH ×2 (11:32→22:11)
--- NOTE | 2016-08-02 14:53 | Progress Note ---
Assessment and Plan Assessment and plan: 1. Acute systolic heart failure CXR and CTA chest showing vascular congestion and right pleural effusion; BNP elevated Echocardiogram obtained, result pending Started on beta rjai, ELI inhibitor and diuresis with IV Lasix, but BB d/c-d today due to pauses Cardiology and pulmonary following (not a candidate for thoracentesis or any other invasive testing/management) 2. Chronic atrial fibrillation Rate controlled on beta raji, but d/c-ed today Not a candidate for anticoagulation 2. Elevated troponin Slight elevation of troponin, but trended down Most likely nonspecific in the setting of acute heart failure 3. COPD Without exacerbation CT chest showing emphysema Pulmonary consulted and discontinued corticosteroids as there is no acute exacerbation; added inhaled bronchodilators (Brovana and Pulmicort) 4. Acute respiratory failure Most likely secondary to heart failure with fluid overload superimposed on COPD Continue to diurese 5. Acute metabolic encephalopathy Likely due to combination of hypoxia/electolytes abnormalities/infection superimposed on baseline dementia 6. Electrolytes abnormalities Mild hypernatremia and hypokalemia Resolved, continue to monitor 7. UTI UA suggestive of UTI, urine culture with 2 or more microorganisms Most likely it is real UTI, so will continue Rocephin 8. DM Accu-Cheks and SSI 9. Malnutrition Dietitian consulted 10. Dementia Supportive care 11. DVT prophylaxis Lovenox; if will develop renal impairment due to ELI inhibitor/Lasix, will switch to heparin subcutaneous 12. Patient was on home hospice History Interval history: unable to answer any questions, confused, lethargic, in restraints Hospitalist Physical - Constitutional Vitals: Temp Pulse Resp BP Pulse Ox 97.4 F L 78 16 119/53 93 08/02/16 10:00 08/02/16 11:30 08/02/16 10:27 08/02/16 10:08/02/16 11:12 General appearance: Present: no acute distress, disheveled - EENT Eyes: Present: PERRL, EOM intact - Neck Neck: Present: supple, normal ROM. Absent: masses or JVD - Respiratory Respiratory effort: normal Respiratory: right: rales, bilateral: diminished (R>L), negative: rhonchi, wheezing - Cardiovascular Rhythm: irregularly irregular Heart Sounds: Present: S1 & S2. Absent: systolic murmur - Extremities Extremities: no ischemia - Abdominal General gastrointestinal: soft, non-tender, non-distended, normal bowel sounds - Neurologic Neurologic: moves all extremities Results - Labs CBC & Chem 7: 08/02/16 04:50 08/02/16 04:50 Labs: Laboratory Last Values WBC 5.1 K/mm3 (4.5-11.0) 08/02/16 04:50 RBC 4.59 M/mm3 (3.65-5.03) 08/02/16 04:50 Hgb 11.9 gm/dl (11.8-15.2) 08/02/16 04:50 Hct 37.3 % (35.5-45.6) 08/02/16 04:50 MCV 81 fl (84-94) L 08/02/16 04:50 MCH 26 pg (28-32) L 08/02/16 04:50 MCHC 32 % (32-34) 08/02/16 04:50 RDW 17.2 % (13.2-15.2) H 08/02/16 04:50 Plt Count 293 K/mm3 (140-440) 08/02/16 04:50 Lymph % (Auto) 12.0 % (13.4-35.0) L 08/02/16 04:50 [place] % (Auto) 4.7 % (0.0-7.3) 08/02/16 04:50 Eos % (Auto) 0.0 % (0.0-4.3) 08/02/16 04:50 Baso % (Auto) 0.1 % (0.0-1.8) 08/02/16 04:50 Lymph # 0.6 K/mm3 (1.2-5.4) L 08/02/16 04:50 [place] # 0.2 K/mm3 (0.0-0.8) 08/02/16 04:50 Eos # 0.0 K/mm3 (0.0-0.4) 08/02/16 04:50 Baso # 0.0 K/mm3 (0.0-0.1) 08/02/16 04:50 Seg Neutrophils % 83.2 % (40.0-70.0) H 08/02/16 04:50 Seg Neutrophils # 4.2 K/mm3 (1.8-7.7) 08/02/16 04:50 PT 15.5 Sec. (12.2-14.9) H 07/31/16 07:16 INR 1.24 (0.87-1.13) H 07/31/16 07:16 APTT 32.6 Sec. (24.2-36.6) 07/31/16 07:16 D-Dimer 1374.31 ng/mlDDU (0-234) H 07/31/16 07:16 Sodium 140 mmol/L (137-145) 08/02/16 04:50 Potassium 3.7 mmol/L (3.6-5.0) 08/02/16 04:50 Chloride 98.0 mmol/L (98-107) 08/02/16 04:50 Carbon Dioxide 28 mmol/L (22-30) 08/02/16 04:50 Anion Gap 18 mmol/L 08/02/16 04:50 BUN 29 mg/dL (9-20) H 08/02/16 04:50 Creatinine 0.9 mg/dL (0.8-1.5) 08/02/16 04:50 Estimated GFR > 60 ml/min 08/02/16 04:50 BUN/Creatinine Ratio 32.22 % 08/02/16 04:50 Glucose 152 mg/dL (75-100) H 08/02/16 04:50 POC Glucose 155 (70-105) H 08/02/16 06:12 Hemoglobin A1c 6.3 % (4-6) H 08/01/16 00:59 Calcium 8.8 mg/dL (8.4-10.2) 08/02/16 04:50 Magnesium 2.2 mg/dL (1.7-2.3) 08/01/16 06:10 Total Bilirubin 0.9 mg/dL (0.1-1.2) 08/02/16 04:50 Direct Bilirubin 0.6 mg/dL (0-0.2) H 07/31/16 07:16 Indirect Bilirubin 1.2 mg/dL 07/31/16 07:16 AST 23 units/L (5-40) 08/02/16 04:50 ALT 11 units/L (7-56) 08/02/16 04:50 Alkaline Phosphatase 97 units/L (35-129) 08/02/16 04:50 Total Creatine Kinase 100 units/L (55-170) 07/31/16 13:12 CK-MB (CK-2) 6.5 ng/mL (0.0-4.0) H 07/31/16 13:12 CK-MB (CK-2) Rel Index 6.5 (0-4) H 07/31/16 13:12 Troponin T 0.033 ng/mL (0.00-0.029) H 07/31/16 13:12 NT-Pro-B Natriuret Pep 7006 pg/mL (0-900) H 07/31/16 07:16 Total Protein 6.7 g/dL (6.3-8.2) 08/02/16 04:50 Albumin 3.0 g/dL (3.9-5) L 08/02/16 04:50 Albumin/Globulin Ratio 0.8 % 08/02/16 04:50 Triglycerides 78 mg/dL (2-149) 07/31/16 07:16 Cholesterol 138 mg/dL (50-199) 07/31/16 07:16 LDL Cholesterol Direct 75 mg/dL (50-130) 07/31/16 07:16 HDL Cholesterol 48 mg/dL (40-59) 07/31/16 07:16 Cholesterol/HDL Ratio 2.87 % 07/31/16 07:16 Urine Color [place] (Yellow) 07/31/16 07:30 Urine Turbidity Cloudy (Clear) 07/31/16 07:30 Urine pH 5.0 (5.0-7.0) 07/31/16 07:30 Ur Specific [place] 1.020 (1.003-1.030) 07/31/16 07:30 Urine Protein 100 mg/dl mg/dL (Negative) 07/31/16 07:30 Urine Glucose (UA) Neg mg/dL (Negative) 07/31/16 07:30 Urine Ketones Tr mg/dL (Negative) 07/31/16 07:30 Urine Blood Sm (Negative) 07/31/16 07:30 Urine Nitrite Neg (Negative) 07/31/16 07:30 Urine Bilirubin Neg (Negative) 07/31/16 07:30 Urine Urobilinogen 4.0 mg/dL (<2.0) 07/31/16 07:30 Ur Leukocyte Esterase Sm (Negative) 07/31/16 07:30 Urine WBC (Auto) 96.0 /HPF (0.0-6.0) H 07/31/16 07:30 Urine RBC (Auto) 4.0 /HPF (0.0-6.0) 07/31/16 07:30 U Epithel Cells (Auto) < 1.0 /HPF (0-13.0) 07/31/16 07:30 Urine Bacteria (Auto) 2+ /HPF (Negative) 07/31/16 07:30 Urine Mucus 3+ /HPF 07/31/16 07:30 Urine Creatinine 63.0 mg/dL (0.1-20.0) H 08/01/16 02:00 Urine Microalbumin 29.5 mg/dL (0.1-34.0) 08/01/16 02:00 Microalb/Creat Ratio 468.2 ug/mg 08/01/16 02:00 - Imaging and Cardiology Imaging and Cardiology: ECHO pending
--- NOTE | 2016-08-02 16:01 | Event Note ---
Date: 08/02/16 Notified by CESAR Russo that patient continuing to have pauses. A review of the monitor shows longest pause 5.8 seconds. Pt. asymptomatic. Will d/c coreg and continue to observe on the monitor.
--- NOTE | 2016-08-02 16:04 | Progress Note ---
Assessment and Plan Imp: 1. Acute CHF 2. Pleural effusion, likely 2/2 #1 3. Acute respiratory failure, hypoxia 4. Centrilobular emphysema 5. Dementia 6. Oropharyngeal dysphagia Rec: 1. Lasix IV 2. F/u Echo report 3. Last admit ST recommended PEG due to dysphagia, but he was thought to be a poor candidate for same due to cardiac issues, and was discharged to home hospice 4. Prognosis poor long-term; no family present; no plans for now for invasive procedures/thoracentesis Subjective Date of service: 08/02/16 Principal diagnosis: shortness of breath Interval history: No events. Eyes open. Nonverbal. Active Medications Albuterol (Proventil) 2.5 mg IH Q4HRT PRN PRN Reason: Shortness Of Breath Albuterol/Ipratropium (Duoneb 0.5 Mg-3 Mg/3 Ml Soln) 1 ampul IH Q6HRT [facility] Last Admin: 08/02/16 10:08 Dose: 1 ampul Arformoterol Tartrate (Brovana Nebu) 15 mcg IH Q12HRT [facility] Last Admin: 08/02/16 08:30 Dose: Not Given Aspirin (Aspirin) 325 mg PO QDAY [facility] Last Admin: 08/02/16 11:30 Dose: 325 mg Budesonide (Pulmicort) 0.25 mg IH Q12HRT [facility] Last Admin: 08/02/16 10:09 Dose: 0.25 mg Dextrose (D50w (25gm)) 50 ml IV PRN PRN PRN Reason: Hypoglycemia Enoxaparin Sodium (Lovenox) 40 mg SUB-Q QDAY [facility] Last Admin: 08/02/16 11:30 Dose: 40 mg Furosemide (Lasix) 20 mg IV BID [facility] Last Admin: 08/02/16 11:32 Dose: 20 mg Hydralazine HCl (Apresoline) 10 mg IV Q6HR PRN PRN Reason: Hypertension Last Admin: 07/31/16 12:03 Dose: 10 mg Dextrose (D5w) 1,000 mls @ 75 mls/hr IV DIRECT [facility] Last Admin: 07/31/16 21:25 Dose: 75 mls/hr Insulin Aspart (Novolog) 0 units SUB-Q Q6HR [facility] PRN Reason: Protocol Last Admin: 08/02/16 06:24 Dose: Not Given Lisinopril (Zestril) 40 mg PO QDAY [facility] Last Admin: 08/02/16 11:30 Dose: 40 mg Methylprednisolone Sodium Succinate (Solu-Medrol) 20 mg IV Q12HR [facility] Last Admin: 08/02/16 11:29 Dose: 20 mg Nitroglycerin (Nitro Dur) 0.1 mg TD QDAY@0600 [facility] Last Admin: 08/02/16 06:28 Dose: Not Given Objective Vital Signs - 12hr 08/02/16 08/02/16 08/02/16 04:25 04:40 05:38 Temperature 97.9 F 97.9 F Pulse Rate 46 L Pulse Rate [ Anterior Bilateral Throughout] Pulse Rate [ 62 62 Left Radial] Respiratory 20 20 Rate Respiratory Rate [Anterior Bilateral Throughout] Blood Pressure 156/70 156/70 [Right Arm] O2 Sat by Pulse 98 98 Oximetry 08/02/16 08/02/16 08/02/16 06:28 10:00 10:09 Temperature 97.4 F L Pulse Rate 46 L Pulse Rate [ 69 Anterior Bilateral Throughout] Pulse Rate [ 66 Left Radial] Respiratory 18 Rate Respiratory 16 Rate [Anterior Bilateral Throughout] Blood Pressure 119/53 [Right Arm] O2 Sat by Pulse 95 Oximetry 08/02/16 08/02/16 08/02/16 10:27 10:29 11:12 Temperature Pulse Rate Pulse Rate [ 71 Anterior Bilateral Throughout] Pulse Rate [ Left Radial] Respiratory Rate Respiratory 16 Rate [Anterior Bilateral Throughout] Blood Pressure [Right Arm] O2 Sat by Pulse 93 93 Oximetry 08/02/16 08/02/16 11:26 11:30 Temperature Pulse Rate 50 L 78 Pulse Rate [ Anterior Bilateral Throughout] Pulse Rate [ Left Radial] Respiratory Rate Respiratory Rate [Anterior Bilateral Throughout] Blood Pressure [Right Arm] O2 Sat by Pulse Oximetry Constitutional: no acute distress Eyes: non-icteric ENT: oropharynx moist Neck: supple Effort: normal Ascultation: Bilateral: wheezes (few wheezes throughout) Percussion: Right: dull (right base) Cardiovascular: regular rate and rhythm (no mrg) Gastrointestinal: normoactive bowel sounds, soft, non-tender, non-distended Extremities: no cyanosis, no edema, pink and warm Neurologic: pupils equal and round, CN II-XII normal, unable to assess (dementia , confused) Psychiatric: other (unable to assess) CBC and BMP: 08/02/16 04:50 08/02/16 04:50 ABG, PT/INR, D-dimer: PT/INR, D-dimer PT 15.5 Sec. (12.2-14.9) H 07/31/16 07:16 INR 1.24 (0.87-1.13) H 07/31/16 07:16 D-Dimer 1374.31 ng/mlDDU (0-234) H 07/31/16 07:16 Abnormal lab findings: Abnormal Labs 07/31/16 07/31/16 07/31/16 13:12 13:12 16:01 Hgb MCV MCH RDW Lymph % (Auto) [place] % (Auto) Lymph # Seg Neutrophils % Sodium Potassium BUN Glucose POC Glucose 128 H Hemoglobin A1c CK-MB (CK-2) 6.5 H CK-MB (CK-2) Rel Index 6.5 H Troponin T 0.033 H Albumin Urine Creatinine 07/31/16 08/01/16 08/01/16 21:21 00:59 02:00 Hgb MCV MCH RDW Lymph % (Auto) [place] % (Auto) Lymph # Seg Neutrophils % Sodium Potassium BUN Glucose POC Glucose 131 H Hemoglobin A1c 6.3 H CK-MB (CK-2) CK-MB (CK-2) Rel Index Troponin T Albumin Urine Creatinine 63.0 H 08/01/16 08/01/16 08/01/16 05:42 06:10 06:10 Hgb 11.6 L MCV 82 L MCH 26 L RDW 17.0 H Lymph % (Auto) 10.7 L [place] % (Auto) 9.4 H Lymph # 0.8 L Seg Neutrophils % 79.8 H Sodium 147 H Potassium 3.5 L BUN 23 H Glucose 127 H POC Glucose 148 H Hemoglobin A1c CK-MB (CK-2) CK-MB (CK-2) Rel Index Troponin T Albumin 2.7 L Urine Creatinine 08/02/16 08/02/16 08/02/16 04:50 04:50 06:12 Hgb MCV 81 L MCH 26 L RDW 17.2 H Lymph % (Auto) 12.0 L [place] % (Auto) Lymph # 0.6 L Seg Neutrophils % 83.2 H Sodium Potassium BUN 29 H Glucose 152 H POC Glucose 155 H Hemoglobin A1c CK-MB (CK-2) CK-MB (CK-2) Rel Index Troponin T Albumin 3.0 L Urine Creatinine Chest x-ray: report reviewed, image reviewed CT scan - chest: report reviewed, image reviewed
[2016-08-02] MEDS: D5W 1,000 ML IV SCH (22:11)
[2016-08-03] MEDS: NOVOLOG SUB-Q SCH ×5 (00:15→23:23)
[2016-08-03] MEDS: DUONEB 0.5 MG-3 MG/3 ML SOLN IH SCH ×4 (03:32→19:50)
[2016-08-03] MEDS: NITRO DUR TD SCH (06:11)
[2016-08-03 06:26] LABS: Basophils % (Auto) 0.1 % (0.0-1.8); Hemoglobin 11.9 gm/dl (11.8-15.2); Mean Corpuscular HGB Conc 32 % (32-34); Mean Corpuscular Hemoglobin 26 pg (28-32); Mean Corpuscular Volume 81 fl (84-94); Platelet Count 282 K/mm3 (140-440); Red Blood Count 4.55 M/mm3 (3.65-5.03); Red Cell Distribution Width 17.2 % (13.2-15.2); White Blood Count 6.2 K/mm3 (4.5-11.0)
[2016-08-03 06:50] LABS: Alanine Aminotransferase 12 units/L (7-56); Albumin 2.9 g/dL (3.9-5); Albumin/Globulin Ratio 0.8 %; Alkaline Phosphatase 92 units/L (35-129); Anion Gap 12 mmol/L; Bilirubin,Total 0.7 mg/dL (0.1-1.2); Blood Urea Nitrogen 36 mg/dL (9-20); Calcium 8.7 mg/dL (8.4-10.2); Carbon Dioxide 30 mmol/L (22-30); Glucose 150 mg/dL (75-100); Potassium 3.3 mmol/L (3.6-5.0); Sodium 136 mmol/L (137-145); Total Protein 6.6 g/dL (6.3-8.2)
[2016-08-03] MEDS: PULMICORT IH SCH ×2 (07:28→19:47)
[2016-08-03] MEDS: BROVANA NEBU IH SCH ×2 (07:28→19:47)
[2016-08-03] MEDS: ATROPINE IV PRN ×2 (08:50→14:45)
--- NOTE | 2016-08-03 11:02 | Progress Note ---
Assessment and Plan Acute respiratory failure/large right pleural effusion management per pulmonary Acute diastolic heart failure clinically improving Echo 07/2016: mild LVH, EF 50-55%, mild MR, mild-moderate TR continue IV lasix, strict I's and O's coreg discontinued due to bradycardia Chronic atrial fibrillation-->currently rate controlled Patient has some pauses on tele however he is a poor candidate for permanent pacemaker, discussed with pt.'s daughter in law Paty In the past the patient was deemed not a candidate for anticoagulation COPD Diabetes Dementia The patient has been seen in conjunction with Dr. Kumari who agrees with the assessment and plan of care. Subjective Date of service: 08/03/16 Principal diagnosis: shortness of breath Interval history: The patient is resting in bed. He is awake but confused. Atrial fibrillation on the monitor with pauses noted overnight. Objective Last Vital Signs Temp 97.4 F L 08/03/16 08:00 Pulse 54 L 08/03/16 08:00 Resp 20 08/03/16 08:00 BP 164/67 08/03/16 08:00 Pulse Ox 96 08/03/16 08:00 - Physical Examination General: No Apparent Distress HEENT: Positive: PERRL Neck: Positive: neck supple, trachea midline Cardiac: Positive: irregularly irregular, S1/S2 Lungs: Positive: Decreased Breath Sounds Neuro: Positive: Other (Pt. awake, follows simple commands, hx. of dementia) Abdomen: Positive: Unremarkable, Soft, Active Bowel Sounds Skin: Negative: Rash, Suspicious Lesions Extremities: Present: normal, warm. Absent: edema - Labs and Meds Cardiac Enzymes 08/03/16 Range/Units 05:32 AST 19 (5-40) units/L CBC 08/03/16 Range/Units 05:32 WBC 6.2 (4.5-11.0) K/mm3 RBC 4.55 (3.65-5.03) M/mm3 Hgb 11.9 (11.8-15.2) gm/dl Hct 37.0 (35.5-45.6) % Plt Count 282 (140-440) K/mm3 Lymph # 0.9 L (1.2-5.4) K/mm3 [place] # 0.6 (0.0-0.8) K/mm3 Eos # 0.0 (0.0-0.4) K/mm3 Baso # 0.0 (0.0-0.1) K/mm3 Comprehensive Metabolic Panel 08/03/16 Range/Units 05:32 Sodium 136 L (137-145) mmol/L Potassium 3.3 L (3.6-5.0) mmol/L Chloride 97.0 L (98-107) mmol/L Carbon Dioxide 30 (22-30) mmol/L BUN 36 H (9-20) mg/dL Creatinine 1.0 (0.8-1.5) mg/dL Glucose 150 H (75-100) mg/dL Calcium 8.7 (8.4-10.2) mg/dL AST 19 (5-40) units/L ALT 12 (7-56) units/L Alkaline Phosphatase 92 (35-129) units/L Total Protein 6.6 (6.3-8.2) g/dL Albumin 2.9 L (3.9-5) g/dL - Imaging and Cardiology EKG: report reviewed (atrial fibrillation with a controlled ventricular rate) Echo: report reviewed (07/2016: mild LVH, EF 50-55%, mild MR, mild-moderate TR) - Telemetry EKG Rhythm: Atrial Fibrillation
--- NOTE | 2016-08-03 11:56 | Progress Note ---
Assessment and Plan Assessment and plan: 1. Acute systolic heart failure CXR and CTA chest showing vascular congestion and right pleural effusion; BNP elevated Echocardiogram obtained, result unable due to [employer] malfunction Started on beta raji, ELI inhibitor and diuresis with IV Lasix, but BB d/c-d 08/02 due to pauses Cardiology and pulmonary following (not a candidate for thoracentesis or any other invasive testing/management) 2. Chronic atrial fibrillation Monitor revealing afib with pauses, so cardiology d/c BB Not a candidate for anticoagulation 2. Elevated troponin Slight elevation of troponin, but trended down Most likely nonspecific in the setting of acute heart failure 3. COPD Without exacerbation CT chest showing emphysema Pulmonary consulted and discontinued corticosteroids as there is no acute exacerbation; added inhaled bronchodilators (Brovana and Pulmicort) 4. Acute respiratory failure Most likely secondary to heart failure with fluid overload superimposed on COPD Continue to diurese 5. Acute metabolic encephalopathy Likely due to combination of hypoxia/electolytes abnormalities/infection superimposed on baseline dementia 6. Electrolytes abnormalities Mild hypernatremia and hypokalemia Resolved, continue to monitor 7. UTI UA suggestive of UTI, urine culture with 2 or more microorganisms Most likely it is real UTI, so will continue Rocephin 8. DM Accu-Cheks and SSI 9. Malnutrition Dietitian consulted 10. Dementia Supportive care 11. DVT prophylaxis Lovenox; if will develop renal impairment due to ELI inhibitor/Lasix, will switch to heparin subcutaneous 12. Patient was on home hospice; CM discussing with family the option of inpatient hospice History Interval history: unable to answer any questions, confused, lethargic, in restraints Hospitalist Physical - Constitutional Vitals: Temp Pulse Resp BP Pulse Ox 97.4 F L 54 L 20 164/67 96 08/03/16 08:00 08/03/16 08:00 08/03/16 08:00 08/03/16 08:00 08/03/16 08:00 General appearance: Present: no acute distress, disheveled - EENT Eyes: Present: PERRL, EOM intact - Neck Neck: Present: supple. Absent: enlarged thyroid, masses or JVD - Respiratory Respiratory effort: normal Respiratory: bilateral: diminished, wheezing (rare wheezes) - Cardiovascular Rhythm: irregularly irregular Heart Sounds: Present: S1 & S2. Absent: systolic murmur - Extremities Extremities: no ischemia, No edema - Abdominal General gastrointestinal: soft, non-tender, non-distended, normal bowel sounds - Integumentary Integumentary: Present: warm, dry. Absent: jaundice, rash - Psychiatric Psychiatric: other (confused) - Neurologic Neurologic: moves all extremities Results - Labs CBC & Chem 7: 08/03/16 05:32 08/03/16 05:32 Labs: Laboratory Last Values WBC 6.2 K/mm3 (4.5-11.0) 08/03/16 05:32 RBC 4.55 M/mm3 (3.65-5.03) 08/03/16 05:32 Hgb 11.9 gm/dl (11.8-15.2) 08/03/16 05:32 Hct 37.0 % (35.5-45.6) 08/03/16 05:32 MCV 81 fl (84-94) L 08/03/16 05:32 MCH 26 pg (28-32) L 08/03/16 05:32 MCHC 32 % (32-34) 08/03/16 05:32 RDW 17.2 % (13.2-15.2) H 08/03/16 05:32 Plt Count 282 K/mm3 (140-440) 08/03/16 05:32 Lymph % (Auto) 14.9 % (13.4-35.0) 08/03/16 05:32 [place] % (Auto) 9.6 % (0.0-7.3) H 08/03/16 05:32 Eos % (Auto) 0.0 % (0.0-4.3) 08/03/16 05:32 Baso % (Auto) 0.1 % (0.0-1.8) 08/03/16 05:32 Lymph # 0.9 K/mm3 (1.2-5.4) L 08/03/16 05:32 [place] # 0.6 K/mm3 (0.0-0.8) 08/03/16 05:32 Eos # 0.0 K/mm3 (0.0-0.4) 08/03/16 05:32 Baso # 0.0 K/mm3 (0.0-0.1) 08/03/16 05:32 Seg Neutrophils % 75.4 % (40.0-70.0) H 08/03/16 05:32 Seg Neutrophils # 4.7 K/mm3 (1.8-7.7) 08/03/16 05:32 PT 15.5 Sec. (12.2-14.9) H 07/31/16 07:16 INR 1.24 (0.87-1.13) H 07/31/16 07:16 APTT 32.6 Sec. (24.2-36.6) 07/31/16 07:16 D-Dimer 1374.31 ng/mlDDU (0-234) H 07/31/16 07:16 Sodium 136 mmol/L (137-145) L 08/03/16 05:32 Potassium 3.3 mmol/L (3.6-5.0) L 08/03/16 05:32 Chloride 97.0 mmol/L (98-107) L 08/03/16 05:32 Carbon Dioxide 30 mmol/L (22-30) 08/03/16 05:32 Anion Gap 12 mmol/L 08/03/16 05:32 BUN 36 mg/dL (9-20) H 08/03/16 05:32 Creatinine 1.0 mg/dL (0.8-1.5) 08/03/16 05:32 Estimated GFR > 60 ml/min 08/03/16 05:32 BUN/Creatinine Ratio 36.00 % 08/03/16 05:32 Glucose 150 mg/dL (75-100) H 08/03/16 05:32 POC Glucose 143 (70-105) H 08/02/16 23:35 Hemoglobin A1c 6.3 % (4-6) H 08/01/16 00:59 Calcium 8.7 mg/dL (8.4-10.2) 08/03/16 05:32 Magnesium 2.2 mg/dL (1.7-2.3) 08/01/16 06:10 Total Bilirubin 0.7 mg/dL (0.1-1.2) 08/03/16 05:32 Direct Bilirubin 0.6 mg/dL (0-0.2) H 07/31/16 07:16 Indirect Bilirubin 1.2 mg/dL 07/31/16 07:16 AST 19 units/L (5-40) 08/03/16 05:32 ALT 12 units/L (7-56) 08/03/16 05:32 Alkaline Phosphatase 92 units/L (35-129) 08/03/16 05:32 Total Creatine Kinase 100 units/L (55-170) 07/31/16 13:12 CK-MB (CK-2) 6.5 ng/mL (0.0-4.0) H 07/31/16 13:12 CK-MB (CK-2) Rel Index 6.5 (0-4) H 07/31/16 13:12 Troponin T 0.033 ng/mL (0.00-0.029) H 07/31/16 13:12 NT-Pro-B Natriuret Pep 7006 pg/mL (0-900) H 07/31/16 07:16 Total Protein 6.6 g/dL (6.3-8.2) 08/03/16 05:32 Albumin 2.9 g/dL (3.9-5) L 08/03/16 05:32 Albumin/Globulin Ratio 0.8 % 08/03/16 05:32 Triglycerides 78 mg/dL (2-149) 07/31/16 07:16 Cholesterol 138 mg/dL (50-199) 07/31/16 07:16 LDL Cholesterol Direct 75 mg/dL (50-130) 07/31/16 07:16 HDL Cholesterol 48 mg/dL (40-59) 07/31/16 07:16 Cholesterol/HDL Ratio 2.87 % 07/31/16 07:16 Urine Color [place] (Yellow) 07/31/16 07:30 Urine Turbidity Cloudy (Clear) 07/31/16 07:30 Urine pH 5.0 (5.0-7.0) 07/31/16 07:30 Ur Specific [place] 1.020 (1.003-1.030) 07/31/16 07:30 Urine Protein 100 mg/dl mg/dL (Negative) 07/31/16 07:30 Urine Glucose (UA) Neg mg/dL (Negative) 07/31/16 07:30 Urine Ketones Tr mg/dL (Negative) 07/31/16 07:30 Urine Blood Sm (Negative) 07/31/16 07:30 Urine Nitrite Neg (Negative) 07/31/16 07:30 Urine Bilirubin Neg (Negative) 07/31/16 07:30 Urine Urobilinogen 4.0 mg/dL (<2.0) 07/31/16 07:30 Ur Leukocyte Esterase Sm (Negative) 07/31/16 07:30 Urine WBC (Auto) 96.0 /HPF (0.0-6.0) H 07/31/16 07:30 Urine RBC (Auto) 4.0 /HPF (0.0-6.0) 07/31/16 07:30 U Epithel Cells (Auto) < 1.0 /HPF (0-13.0) 07/31/16 07:30 Urine Bacteria (Auto) 2+ /HPF (Negative) 07/31/16 07:30 Urine Mucus 3+ /HPF 07/31/16 07:30 Urine Creatinine 63.0 mg/dL (0.1-20.0) H 08/01/16 02:00 Urine Microalbumin 29.5 mg/dL (0.1-34.0) 08/01/16 02:00 Microalb/Creat Ratio 468.2 ug/mg 08/01/16 02:00
[2016-08-03] MEDS ORDERED: K-DUR PO ONE (12:00)
--- NOTE | 2016-08-03 13:15 | Progress Note ---
Assessment and Plan Imp: 1. Acute CHF 2. Pleural effusion, likely 2/2 #1 3. Acute respiratory failure, hypoxia 4. Centrilobular emphysema 5. Dementia 6. Oropharyngeal dysphagia Rec: 1. Lasix IV; K repleted 2. F/u Echo report 3. Last admit ST recommended PEG due to dysphagia, but he was thought to be a poor candidate for same due to cardiac issues, and was discharged to home hospice; high risk for aspiration 4. Prognosis poor long-term; no family present; since he is on RA with no SOB or respiratory issues, do not believe thoracentesis is advised No family present Subjective Date of service: 08/03/16 Principal diagnosis: shortness of breath Interval history: No events. Eyes open. Nonverbal. Moans incoherently. Active Medications Albuterol (Proventil) 2.5 mg IH Q4HRT PRN PRN Reason: Shortness Of Breath Albuterol/Ipratropium (Duoneb 0.5 Mg-3 Mg/3 Ml Soln) 1 ampul IH Q6HRT [facility] Last Admin: 08/03/16 13:04 Dose: 1 ampul Arformoterol Tartrate (Brovana Nebu) 15 mcg IH Q12HRT [facility] Last Admin: 08/03/16 07:28 Dose: 15 mcg Aspirin (Aspirin) 325 mg PO QDAY [facility] Last Admin: 08/02/16 11:30 Dose: 325 mg Atropine Sulfate (Atropine) 0.5 mg IV PRN PRN PRN Reason: Bradycardia Last Admin: 08/03/16 08:50 Dose: 0.5 mg Budesonide (Pulmicort) 0.25 mg IH Q12HRT [facility] Last Admin: 08/03/16 07:28 Dose: 0.25 mg Dextrose (D50w (25gm)) 50 ml IV PRN PRN PRN Reason: Hypoglycemia Enoxaparin Sodium (Lovenox) 40 mg SUB-Q QDAY [facility] Last Admin: 08/02/16 11:30 Dose: 40 mg Furosemide (Lasix) 20 mg IV BID [facility] Last Admin: 08/02/16 22:11 Dose: 20 mg Hydralazine HCl (Apresoline) 10 mg IV Q6HR PRN PRN Reason: Hypertension Last Admin: 07/31/16 12:03 Dose: 10 mg Hydralazine HCl (Apresoline) 25 mg PO BID [facility] Dextrose (D5w) 1,000 mls @ 75 mls/hr IV DIRECT [facility] Last Admin: 08/02/16 22:11 Dose: 75 mls/hr Insulin Aspart (Novolog) 0 units SUB-Q Q6HR [facility] PRN Reason: Protocol Last Admin: 08/03/16 06:11 Dose: Not Given Lisinopril (Zestril) 40 mg PO QDAY [facility] Last Admin: 08/02/16 11:30 Dose: 40 mg Nitroglycerin (Nitro Dur) 0.1 mg TD QDAY@0600 [facility] Last Admin: 08/03/16 06:11 Dose: 0.1 mg Objective Vital Signs - 12hr 08/03/16 08/03/16 08/03/16 03:30 07:30 07:36 Temperature 98.5 F Pulse Rate [ 74 73 Anterior Bilateral Throughout] Pulse Rate [ 54 L Left Radial] Respiratory 22 Rate Respiratory 18 18 Rate [Anterior Bilateral Throughout] Blood Pressure 153/65 [Left Arm] O2 Sat by Pulse 99 95 Oximetry 08/03/16 08/03/16 08/03/16 08:00 13:04 13:10 Temperature 97.4 F L Pulse Rate [ 80 82 Anterior Bilateral Throughout] Pulse Rate [ 54 L Left Radial] Respiratory 20 Rate Respiratory 18 18 Rate [Anterior Bilateral Throughout] Blood Pressure 164/67 [Left Arm] O2 Sat by Pulse 96 Oximetry Constitutional: no acute distress Eyes: non-icteric ENT: oropharynx moist Neck: supple Effort: normal Ascultation: Bilateral: wheezes (few wheezes throughout) Percussion: Right: dull (right base) Cardiovascular: regular rate and rhythm (no mrg) Gastrointestinal: normoactive bowel sounds, soft, non-tender, non-distended Extremities: no cyanosis, no edema, pink and warm Neurologic: pupils equal and round, CN II-XII normal, unable to assess (dementia , confused) Psychiatric: other (unable to assess) CBC and BMP: 08/03/16 05:32 08/03/16 05:32 ABG, PT/INR, D-dimer: PT/INR, D-dimer PT 15.5 Sec. (12.2-14.9) H 07/31/16 07:16 INR 1.24 (0.87-1.13) H 07/31/16 07:16 D-Dimer 1374.31 ng/mlDDU (0-234) H 07/31/16 07:16 Abnormal lab findings: Abnormal Labs 07/31/16 07/31/16 07/31/16 13:12 13:12 16:01 Hgb MCV MCH RDW Lymph % (Auto) [place] % (Auto) Lymph # Seg Neutrophils % Sodium Potassium Chloride BUN Glucose POC Glucose 128 H Hemoglobin A1c CK-MB (CK-2) 6.5 H CK-MB (CK-2) Rel Index 6.5 H Troponin T 0.033 H Albumin Urine Creatinine 07/31/16 08/01/16 08/01/16 21:21 00:59 02:00 Hgb MCV MCH RDW Lymph % (Auto) [place] % (Auto) Lymph # Seg Neutrophils % Sodium Potassium Chloride BUN Glucose POC Glucose 131 H Hemoglobin A1c 6.3 H CK-MB (CK-2) CK-MB (CK-2) Rel Index Troponin T Albumin Urine Creatinine 63.0 H 08/01/16 08/01/16 08/01/16 05:42 06:10 06:10 Hgb 11.6 L MCV 82 L MCH 26 L RDW 17.0 H Lymph % (Auto) 10.7 L [place] % (Auto) 9.4 H Lymph # 0.8 L Seg Neutrophils % 79.8 H Sodium 147 H Potassium 3.5 L Chloride BUN 23 H Glucose 127 H POC Glucose 148 H Hemoglobin A1c CK-MB (CK-2) CK-MB (CK-2) Rel Index Troponin T Albumin 2.7 L Urine Creatinine 08/02/16 08/02/16 08/02/16 04:50 04:50 06:12 Hgb MCV 81 L MCH 26 L RDW 17.2 H Lymph % (Auto) 12.0 L [place] % (Auto) Lymph # 0.6 L Seg Neutrophils % 83.2 H Sodium Potassium Chloride BUN 29 H Glucose 152 H POC Glucose 155 H Hemoglobin A1c CK-MB (CK-2) CK-MB (CK-2) Rel Index Troponin T Albumin 3.0 L Urine Creatinine 08/02/16 08/03/16 08/03/16 23:35 05:32 05:32 Hgb MCV 81 L MCH 26 L RDW 17.2 H Lymph % (Auto) [place] % (Auto) 9.6 H Lymph # 0.9 L Seg Neutrophils % 75.4 H Sodium 136 L Potassium 3.3 L Chloride 97.0 L BUN 36 H Glucose 150 H POC Glucose 143 H Hemoglobin A1c CK-MB (CK-2) CK-MB (CK-2) Rel Index Troponin T Albumin 2.9 L Urine Creatinine Chest x-ray: report reviewed, image reviewed CT scan - chest: report reviewed, image reviewed
[2016-08-03] MEDS: LOVENOX SUB-Q SCH (13:27)
[2016-08-03] MEDS: LASIX IV SCH ×2 (14:27→21:25)
[2016-08-03] MEDS: ASPIRIN PO SCH (17:30)
[2016-08-03] MEDS: ZESTRIL PO SCH (19:20)
[2016-08-03] MEDS: APRESOLINE IV PRN (20:24)
[2016-08-03] MEDS: APRESOLINE PO SCH ×2 (21:03→21:04)
[2016-08-04] MEDS: D5W 1,000 ML IV SCH (02:23)
[2016-08-04] MEDS: APRESOLINE IV PRN (02:24)
[2016-08-04] MEDS: DUONEB 0.5 MG-3 MG/3 ML SOLN IH SCH ×3 (02:41→13:18)
[2016-08-04] MEDS: NITRO DUR TD SCH (05:37)
[2016-08-04] MEDS: NOVOLOG SUB-Q SCH ×2 (05:41→12:45)
[2016-08-04] MEDS: PULMICORT IH SCH (07:47)
[2016-08-04] MEDS: BROVANA NEBU IH SCH (07:47)
--- NOTE | 2016-08-04 09:38 | Progress Note ---
Assessment and Plan Acute respiratory failure/large right pleural effusion management per pulmonary Acute diastolic heart failure clinically improving Echo 07/2016: mild LVH, EF 50-55%, mild MR, mild-moderate TR continue IV lasix, strict I's and O's coreg discontinued due to bradycardia Chronic atrial fibrillation-->currently rate controlled Patient has some pauses on tele however he is a poor candidate for permanent pacemaker, discussed with pt.'s daughter in law Paty In the past the patient was deemed not a candidate for anticoagulation COPD Diabetes Dementia Continue current management. Patient is a poor candidate for pacemaker implantation given advanced dementia. The patient has been seen in conjunction with Dr. Kumari who agrees with the assessment and plan of care. Subjective Date of service: 08/04/16 Principal diagnosis: shortness of breath Interval history: The patient is resting in bed. He is awake but confused. History of dementia. Atrial fibrillation on the monitor with occasional pauses noted. Objective Last Vital Signs Temp 98.6 F 08/04/16 05:53 Pulse 56 L 08/04/16 07:48 Resp 17 08/04/16 07:48 BP 140/76 08/04/16 05:53 Pulse Ox 91 08/04/16 07:49 - Physical Examination General: No Apparent Distress HEENT: Positive: PERRL Neck: Positive: neck supple, trachea midline Cardiac: Positive: irregularly irregular, S1/S2 Lungs: Positive: Decreased Breath Sounds Neuro: Positive: Other (Pt. awake, follows simple commands, hx. of dementia) Abdomen: Positive: Unremarkable, Soft, Active Bowel Sounds Skin: Negative: Rash, Suspicious Lesions Extremities: Present: normal, warm. Absent: edema - Imaging and Cardiology EKG: report reviewed (atrial fibrillation with a controlled ventricular rate) Echo: report reviewed (07/2016: mild LVH, EF 50-55%, mild MR, mild-moderate TR) - Telemetry EKG Rhythm: Atrial Fibrillation
[2016-08-04 10:39] LABS: Anion Gap 14 mmol/L; BUN/Creatinine Ratio 33.75; Blood Urea Nitrogen 27 mg/dL (9-20); Calcium 8.4 mg/dL (8.4-10.2); Carbon Dioxide 28 mmol/L (22-30); Chloride 94.7 mmol/L (98-107); Glucose 126 mg/dL (75-100); Sodium 134 mmol/L (137-145)
[2016-08-04 10:41] LABS: Potassium 2.9 mmol/L (3.6-5.0)
--- NOTE | 2016-08-04 10:45 | Progress Note ---
Assessment and Plan - Patient Problems (1) Acute respiratory failure Current Visit: Yes Status: Acute Qualifiers: Respiratory failure complication: R Plan to address problem: Pt has poor prognosis. Pt candidate for inpatient hospice. Pt discharged to hospice under care of biomedical equipment specialist. discontinue current medications. (2) CHF (congestive heart failure) Current Visit: Yes Status: Acute Qualifiers: Congestive heart failure type: unspecified congestive heart failure type Congestive heart failure chronicity: acute on chronic Qualified Code(s): I50.9 - Heart failure, unspecified (3) Encephalopathy Current Visit: Yes Status: Acute Plan to address problem: Metabolic: supportive care, D/C to hospice (4) Heart block Current Visit: No Status: Acute Plan to address problem: Cardiology consulted: supportive care. (5) Malnutrition Current Visit: Yes Status: Acute Plan to address problem: encourage oral intake while awake and alert. (6) Debility Current Visit: Yes Status: Acute Plan to address problem: bed alarm, fall precautions. History Interval history: Pt lying in bed, stupurous, No reported nursing events. Pt medically optimized and ready for discharge, Pt discharged to hospice/SNF under care of biomedical equipment specialist. Hospitalist Physical - Constitutional Vitals: Temp Pulse Resp BP Pulse Ox 98.6 F 56 L 17 140/76 91 08/04/16 05:53 08/04/16 07:48 08/04/16 07:48 08/04/16 05:53 08/04/16 07:49 General appearance: Present: mild distress, disheveled - Neck Neck: Present: supple - Respiratory Respiratory: bilateral: diminished - Cardiovascular Rhythm: regular - Extremities Extremities: no ischemia Peripheral Pulses: abnormal - Abdominal General gastrointestinal: soft, non-distended - Integumentary Integumentary: Present: clear, dry - Psychiatric Psychiatric: no intact judgment & insight, no memory intact, no cooperative - Neurologic Neurologic: no gait normal Results - Labs CBC & Chem 7: 08/03/16 05:32 08/04/16 09:59 Labs: Laboratory Last Values WBC 6.2 K/mm3 (4.5-11.0) 08/03/16 05:32 RBC 4.55 M/mm3 (3.65-5.03) 08/03/16 05:32 Hgb 11.9 gm/dl (11.8-15.2) 08/03/16 05:32 Hct 37.0 % (35.5-45.6) 08/03/16 05:32 MCV 81 fl (84-94) L 08/03/16 05:32 MCH 26 pg (28-32) L 08/03/16 05:32 MCHC 32 % (32-34) 08/03/16 05:32 RDW 17.2 % (13.2-15.2) H 08/03/16 05:32 Plt Count 282 K/mm3 (140-440) 08/03/16 05:32 Lymph % (Auto) 14.9 % (13.4-35.0) 08/03/16 05:32 [place] % (Auto) 9.6 % (0.0-7.3) H 08/03/16 05:32 Eos % (Auto) 0.0 % (0.0-4.3) 08/03/16 05:32 Baso % (Auto) 0.1 % (0.0-1.8) 08/03/16 05:32 Lymph # 0.9 K/mm3 (1.2-5.4) L 08/03/16 05:32 [place] # 0.6 K/mm3 (0.0-0.8) 08/03/16 05:32 Eos # 0.0 K/mm3 (0.0-0.4) 08/03/16 05:32 Baso # 0.0 K/mm3 (0.0-0.1) 08/03/16 05:32 Seg Neutrophils % 75.4 % (40.0-70.0) H 08/03/16 05:32 Seg Neutrophils # 4.7 K/mm3 (1.8-7.7) 08/03/16 05:32 PT 15.5 Sec. (12.2-14.9) H 07/31/16 07:16 INR 1.24 (0.87-1.13) H 07/31/16 07:16 APTT 32.6 Sec. (24.2-36.6) 07/31/16 07:16 D-Dimer 1374.31 ng/mlDDU (0-234) H 07/31/16 07:16 Sodium 134 mmol/L (137-145) L 08/04/16 09:59 Potassium 3.3 mmol/L (3.6-5.0) L 08/03/16 05:32 Chloride 94.7 mmol/L (98-107) L 08/04/16 09:59 Carbon Dioxide 28 mmol/L (22-30) 08/04/16 09:59 Anion Gap 14 mmol/L 08/04/16 09:59 BUN 27 mg/dL (9-20) H 08/04/16 09:59 Creatinine 0.8 mg/dL (0.8-1.5) 08/04/16 09:59 Estimated GFR > 60 ml/min 08/04/16 09:59 BUN/Creatinine Ratio 33.75 % 08/04/16 09:59 Glucose 126 mg/dL (75-100) H 08/04/16 09:59 POC Glucose 115 (70-105) H 08/04/16 05:27 Hemoglobin A1c 6.3 % (4-6) H 08/01/16 00:59 Calcium 8.4 mg/dL (8.4-10.2) 08/04/16 09:59 Magnesium 2.2 mg/dL (1.7-2.3) 08/01/16 06:10 Total Bilirubin 0.7 mg/dL (0.1-1.2) 08/03/16 05:32 Direct Bilirubin 0.6 mg/dL (0-0.2) H 07/31/16 07:16 Indirect Bilirubin 1.2 mg/dL 07/31/16 07:16 AST 19 units/L (5-40) 08/03/16 05:32 ALT 12 units/L (7-56) 08/03/16 05:32 Alkaline Phosphatase 92 units/L (35-129) 08/03/16 05:32 Total Creatine Kinase 100 units/L (55-170) 07/31/16 13:12 CK-MB (CK-2) 6.5 ng/mL (0.0-4.0) H 07/31/16 13:12 CK-MB (CK-2) Rel Index 6.5 (0-4) H 07/31/16 13:12 Troponin T 0.033 ng/mL (0.00-0.029) H 07/31/16 13:12 NT-Pro-B Natriuret Pep 7006 pg/mL (0-900) H 07/31/16 07:16 Total Protein 6.6 g/dL (6.3-8.2) 08/03/16 05:32 Albumin 2.9 g/dL (3.9-5) L 08/03/16 05:32 Albumin/Globulin Ratio 0.8 % 08/03/16 05:32 Triglycerides 78 mg/dL (2-149) 07/31/16 07:16 Cholesterol 138 mg/dL (50-199) 07/31/16 07:16 LDL Cholesterol Direct 75 mg/dL (50-130) 07/31/16 07:16 HDL Cholesterol 48 mg/dL (40-59) 07/31/16 07:16 Cholesterol/HDL Ratio 2.87 % 07/31/16 07:16 Urine Color [place] (Yellow) 07/31/16 07:30 Urine Turbidity Cloudy (Clear) 07/31/16 07:30 Urine pH 5.0 (5.0-7.0) 07/31/16 07:30 Ur Specific [place] 1.020 (1.003-1.030) 07/31/16 07:30 Urine Protein 100 mg/dl mg/dL (Negative) 07/31/16 07:30 Urine Glucose (UA) Neg mg/dL (Negative) 07/31/16 07:30 Urine Ketones Tr mg/dL (Negative) 07/31/16 07:30 Urine Blood Sm (Negative) 07/31/16 07:30 Urine Nitrite Neg (Negative) 07/31/16 07:30 Urine Bilirubin Neg (Negative) 07/31/16 07:30 Urine Urobilinogen 4.0 mg/dL (<2.0) 07/31/16 07:30 Ur Leukocyte Esterase Sm (Negative) 07/31/16 07:30 Urine WBC (Auto) 96.0 /HPF (0.0-6.0) H 07/31/16 07:30 Urine RBC (Auto) 4.0 /HPF (0.0-6.0) 07/31/16 07:30 U Epithel Cells (Auto) < 1.0 /HPF (0-13.0) 07/31/16 07:30 Urine Bacteria (Auto) 2+ /HPF (Negative) 07/31/16 07:30 Urine Mucus 3+ /HPF 07/31/16 07:30 Urine Creatinine 63.0 mg/dL (0.1-20.0) H 08/01/16 02:00 Urine Microalbumin 29.5 mg/dL (0.1-34.0) 08/01/16 02:00 Microalb/Creat Ratio 468.2 ug/mg 08/01/16 02:00
[2016-08-04] MEDS: LOVENOX SUB-Q SCH (10:54)
[2016-08-04] MEDS: LASIX IV SCH (10:54)
[2016-08-04] MEDS: ASPIRIN PO SCH (10:54)
[2016-08-04] MEDS: APRESOLINE PO SCH (10:54)
[2016-08-04] MEDS: ZESTRIL PO SCH (10:54)
--- NOTE | 2016-08-04 13:13 | Progress Note ---
Assessment and Plan Imp: 1. Acute CHF 2. Pleural effusion, likely 2/2 #1 3. Acute respiratory failure, hypoxia 4. Centrilobular emphysema 5. Dementia 6. Oropharyngeal dysphagia Rec: 1. Lasix IV; extra K given 2. F/u Echo report 3. Last admit ST recommended PEG due to dysphagia, but he was thought to be a poor candidate for same due to cardiac issues, and was discharged to home hospice; high risk for aspiration 4. Prognosis poor long-term; note plans for hospice and, thus, do not believe thoracentesis is advised or will ultimately change the outcome No family present Subjective Date of service: 08/04/16 Principal diagnosis: shortness of breath Interval history: No events. Eyes open. Nonverbal. Moans incoherently. Had hypoxia this AM, now on 5L NC. Cannot voice complaints. Active Medications Albuterol (Proventil) 2.5 mg IH Q4HRT PRN PRN Reason: Shortness Of Breath Albuterol/Ipratropium (Duoneb 0.5 Mg-3 Mg/3 Ml Soln) 1 ampul IH Q6HRT [facility] Last Admin: 08/04/16 07:47 Dose: Not Given Arformoterol Tartrate (Brovana Nebu) 15 mcg IH Q12HRT [facility] Last Admin: 08/04/16 07:47 Dose: 15 mcg Aspirin (Aspirin) 325 mg PO QDAY [facility] Last Admin: 08/04/16 10:54 Dose: Not Given Atropine Sulfate (Atropine) 0.5 mg IV PRN PRN PRN Reason: Bradycardia Last Admin: 08/03/16 14:45 Dose: 0.5 mg Budesonide (Pulmicort) 0.25 mg IH Q12HRT [facility] Last Admin: 08/04/16 07:47 Dose: Not Given Dextrose (D50w (25gm)) 50 ml IV PRN PRN PRN Reason: Hypoglycemia Enoxaparin Sodium (Lovenox) 40 mg SUB-Q QDAY [facility] Last Admin: 08/04/16 10:54 Dose: 40 mg Furosemide (Lasix) 20 mg IV BID [facility] Last Admin: 08/04/16 10:54 Dose: 20 mg Hydralazine HCl (Apresoline) 10 mg IV Q6HR PRN PRN Reason: Hypertension Last Admin: 08/04/16 02:24 Dose: 10 mg Hydralazine HCl (Apresoline) 25 mg PO BID [facility] Last Admin: 08/04/16 10:54 Dose: Not Given Dextrose (D5w) 1,000 mls @ 75 mls/hr IV DIRECT [facility] Last Admin: 08/04/16 02:23 Dose: 75 mls/hr Insulin Aspart (Novolog) 0 units SUB-Q Q6HR [facility] PRN Reason: Protocol Last Admin: 08/04/16 12:45 Dose: Not Given Lisinopril (Zestril) 40 mg PO QDAY [facility] Last Admin: 08/04/16 10:54 Dose: Not Given Nitroglycerin (Nitro Dur) 0.1 mg TD QDAY@0600 [facility] Last Admin: 08/04/16 05:37 Dose: 0.1 mg Objective Vital Signs - 12hr 08/04/16 08/04/16 08/04/16 02:37 02:49 05:53 Temperature 98.6 F Pulse Rate [ 72 78 Anterior Bilateral Throughout] Pulse Rate [ 91 H Left Radial] Respiratory 17 Rate Respiratory 18 22 Rate [Anterior Bilateral Throughout] Blood Pressure 140/76 [Left Arm] O2 Sat by Pulse 91 Oximetry 08/04/16 08/04/16 07:48 07:49 Temperature Pulse Rate [ 56 L Anterior Bilateral Throughout] Pulse Rate [ Left Radial] Respiratory Rate Respiratory 17 Rate [Anterior Bilateral Throughout] Blood Pressure [Left Arm] O2 Sat by Pulse 91 Oximetry Constitutional: no acute distress Eyes: non-icteric ENT: oropharynx moist Neck: supple Effort: normal Ascultation: Bilateral: clear Cardiovascular: regular rate and rhythm (no mrg) Gastrointestinal: normoactive bowel sounds, soft, non-tender, non-distended Extremities: no cyanosis, no edema, pink and warm Neurologic: pupils equal and round, CN II-XII normal, unable to assess (dementia , confused) Psychiatric: other (unable to assess) CBC and BMP: 08/03/16 05:32 08/04/16 09:59 ABG, PT/INR, D-dimer: PT/INR, D-dimer PT 15.5 Sec. (12.2-14.9) H 07/31/16 07:16 INR 1.24 (0.87-1.13) H 07/31/16 07:16 D-Dimer 1374.31 ng/mlDDU (0-234) H 07/31/16 07:16 Abnormal lab findings: Abnormal Labs 07/31/16 07/31/16 07/31/16 13:12 13:12 16:01 Hgb MCV MCH RDW Lymph % (Auto) [place] % (Auto) Lymph # Seg Neutrophils % Sodium Potassium Chloride BUN Glucose POC Glucose 128 H Hemoglobin A1c CK-MB (CK-2) 6.5 H CK-MB (CK-2) Rel Index 6.5 H Troponin T 0.033 H Albumin Urine Creatinine 07/31/16 08/01/16 08/01/16 21:21 00:59 02:00 Hgb MCV MCH RDW Lymph % (Auto) [place] % (Auto) Lymph # Seg Neutrophils % Sodium Potassium Chloride BUN Glucose POC Glucose 131 H Hemoglobin A1c 6.3 H CK-MB (CK-2) CK-MB (CK-2) Rel Index Troponin T Albumin Urine Creatinine 63.0 H 08/01/16 08/01/16 08/01/16 05:42 06:10 06:10 Hgb 11.6 L MCV 82 L MCH 26 L RDW 17.0 H Lymph % (Auto) 10.7 L [place] % (Auto) 9.4 H Lymph # 0.8 L Seg Neutrophils % 79.8 H Sodium 147 H Potassium 3.5 L Chloride BUN 23 H Glucose 127 H POC Glucose 148 H Hemoglobin A1c CK-MB (CK-2) CK-MB (CK-2) Rel Index Troponin T Albumin 2.7 L Urine Creatinine 08/02/16 08/02/16 08/02/16 04:50 04:50 06:12 Hgb MCV 81 L MCH 26 L RDW 17.2 H Lymph % (Auto) 12.0 L [place] % (Auto) Lymph # 0.6 L Seg Neutrophils % 83.2 H Sodium Potassium Chloride BUN 29 H Glucose 152 H POC Glucose 155 H Hemoglobin A1c CK-MB (CK-2) CK-MB (CK-2) Rel Index Troponin T Albumin 3.0 L Urine Creatinine 08/02/16 08/03/16 08/03/16 23:35 05:32 05:32 Hgb MCV 81 L MCH 26 L RDW 17.2 H Lymph % (Auto) [place] % (Auto) 9.6 H Lymph # 0.9 L Seg Neutrophils % 75.4 H Sodium 136 L Potassium 3.3 L Chloride 97.0 L BUN 36 H Glucose 150 H POC Glucose 143 H Hemoglobin A1c CK-MB (CK-2) CK-MB (CK-2) Rel Index Troponin T Albumin 2.9 L Urine Creatinine 08/03/16 08/03/16 08/03/16 13:21 17:38 20:58 Hgb MCV MCH RDW Lymph % (Auto) [place] % (Auto) Lymph # Seg Neutrophils % Sodium Potassium Chloride BUN Glucose POC Glucose 108 H 132 H 130 H Hemoglobin A1c CK-MB (CK-2) CK-MB (CK-2) Rel Index Troponin T Albumin Urine Creatinine 08/04/16 08/04/16 08/04/16 05:27 09:59 12:27 Hgb MCV MCH RDW Lymph % (Auto) [place] % (Auto) Lymph # Seg Neutrophils % Sodium 134 L Potassium 2.9 L* Chloride 94.7 L BUN 27 H Glucose 126 H POC Glucose 115 H 133 H Hemoglobin A1c CK-MB (CK-2) CK-MB (CK-2) Rel Index Troponin T Albumin Urine Creatinine Chest x-ray: report reviewed, image reviewed
[2016-08-04 13:38] VITALS: BP 100/53
[2016-08-04] MEDS ORDERED: KCL 10MEQ/100ML 100 ML IV SCH (14:00)
[2016-08-04] MEDS ORDERED: K-DUR PO ONE (14:11)
--- NOTE | 2016-08-04 18:04 | Discharge Summary ---
Providers - Providers Date of Admission: 07/31/16 11:26 Attending physician: MIMI NAVA 07/31/16 15:40 Consult to Physician [CONS] Routine Consulting Provider: FREDERICK DURHAM Reason For Exam: Right pleural effusion Place consult to:: Fani Notified:: a service Phone number called:: [phone] Was contact made?: Yes Time called:: 17:00 Comment:: Sent him a text 08/01/16 00:39 Consult to Physician [CONS] Routine Consulting Provider: DESMOND MASTERS Reason For Exam: elevated cardiac enzymes. Congestive heart failur Place consult to:: Angela Notified:: PLEASE CALL MD IN AM Was contact made?: No 08/01/16 04:58 Consult to Wound/ET Nurse [CONS] Urgent Reason For Exam: wound eval of posterior upper legs and hips 08/03/16 17:04 Speech Therapy Evaluation and Treat [CONS] Routine Reason For Exam: not swallowing Primary care physician: INTERNAL MEDICINE NURSE Hospitalization Hospital course: 86 YO Male admitted for End Stage CHF, Respiratory Failure. Pt treated with supportive care. Pt convalesced poorly without improvement in symptoms during hospital course. Pt medically optimized and family informed of poor prognosis. Pt evaluated prior to discharge but no significant new physical exam findings since admission. Pt subsequently discharged home to hospice care under the care of the medical billing service. 34 minutes dedicated to patient discharge and family education. Disposition: DC TO HOSPICE (HOME) - Discharge Diagnoses (1) Acute respiratory failure Status: Acute Qualifiers: Respiratory failure complication: R (2) CHF (congestive heart failure) Status: Acute Qualifiers: Congestive heart failure type: unspecified congestive heart failure type Congestive heart failure chronicity: acute on chronic Qualified Code(s): I50.9 - Heart failure, unspecified (3) Encephalopathy Status: Acute (4) Heart block Status: Acute (5) Malnutrition Status: Acute (6) Debility Status: Acute Core Measure Documentation - Palliative Care Palliative Care/ Comfort Measures: Hospice Care Exam - Constitutional Vitals: Temp Pulse Resp BP Pulse Ox 98.6 F 56 L 18 100/53 91 08/04/16 05:53 08/04/16 14:16 08/04/16 14:16 08/04/16 13:36 08/04/16 13:36 General appearance: Present: cachectic - EENT Eyes: Present: PERRL ENT: hearing intact - Respiratory Respiratory: bilateral: diminished - Cardiovascular Rhythm: regular Heart Sounds: Present: S1 & S2 - Extremities Extremities: no ischemia Peripheral Pulses: within normal limits - Abdominal General gastrointestinal: Present: soft, non-distended. Absent: hepatomegaly, splenomegaly - Integumentary Integumentary: Present: clear, dry, decreased turgor - Musculoskeletal Musculoskeletal: generalized weakness - Psychiatric Psychiatric: no intact judgment & insight - Neurologic Neurologic: no gait normal Plan Activity: advance as tolerated Follow up with: PRIMARY CAREMD [Primary Care Provider] - 3-5 Days
== END 2016-08-04 14:33 | disposition hospice, home (50) | DRG 70 ==
LOC: ED 06:29 → 4A 11:26
PROVIDERS: ADMIT Family Medicine; ATTEND Internal Medicine
DX: G93.41 Metabolic encephalopathy (principal); J96.02 Acute respiratory failure with hypercapnia; J96.01 Acute respiratory failure with hypoxia; I50.21 Acute systolic (congestive) heart failure; J44.1 Chronic obstructive pulmonary disease with (acute) exacerbation; N39.0 Urinary tract infection, site not specified; E46 Unspecified protein-calorie malnutrition; E87.0 Hyperosmolality and hypernatremia; Z68.1 Body mass index [BMI] 19.9 or less, adult; I11.0 Hypertensive heart disease with heart failure; F03.90 Unspecified dementia, unspecified severity, without behavioral disturbance, psychotic disturbance, mood disturbance, and anxiety; I48.2 Chronic atrial fibrillation; E11.9 Type 2 diabetes mellitus without complications; E86.0 Dehydration; F17.200 Nicotine dependence, unspecified, uncomplicated; R13.12 Dysphagia, oropharyngeal phase; I45.9 Conduction disorder, unspecified; R53.81 Other malaise; Z88.2 Allergy status to sulfonamides; Z79.4 Long term (current) use of insulin; Z91.018 Allergy to other foods
CPT/HCPCS: 36415; 70450; 71010; 71275; 80048; 80053; 80061; 80074; 81001; 82043; 82550; 82553; 82962; 83036; 83735; 83880; 84484; 85025; 85379; 85610; 85730; 87040; 87086; 90471; 90732; 93005; 93010; 93306; 94640; 94760; 96365; 96375; G0009; J0360; J0461; J0696; J1650; J1940; J1956; J2060; J2920; J2930; J7070; Q9967